=== PATIENT | female | born 2000 | race Hispanic/Latino ===

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

== ENCOUNTER 2019-05-18 16:08 | Emergency (ER) | payer SELFPAY ==
--- OUTSIDE RECORDS SUMMARY | 2019-05-18 16:10 | XMS REPORT | Summary of Care ---
:2000 Author Organization [facility] - Health Address [address] [place] [address] Care Team Providers Name Role Phone Ev Rendon Talha Insurance Hmo Shira Guthrie [facility] Primary Care Provider Encounter Details Date Type Department Care Team Description 04/04/2019 Orders Only [facility] Doctor Unassigned, No [address] [facility] [place] [address] [address] [place] [address] Allergies Active Allergy Reactions Severity Noted Date Comments Penicillin Anaphylaxis High 10/06/2017 documented as of this encounter (statuses as of 04/04/2019) Medications Medication Sig Dispensed Refills Start Date End Date Status docusate calcium 240 Take 1 capsule by 60 capsule 1 06/28/2018 Active mg mouth once daily capsuleIndications: as needed for (normal Constipation. spontaneous vaginal delivery) ibuprofen 600 mg Take 1 tablet by 60 tablet 1 06/28/2018 Active tabletIndications: mouth every 6 (normal (six) hours as spontaneous vaginal needed for Pain delivery) (scale 1-3) or Pain (scale 4-6) (Pain). Take with food or milk. Iron Fum & P-FA-Vit Take 1 capsule by 30 capsule 2 06/28/2018 Active B & C No.9 (INTEGRA mouth daily. PLUS) 125 mg iron- 1 mg CapIndications: 39 weeks gestation of , (normal spontaneous vaginal delivery) clindamycin 150 mg Take 3 capsules 90 capsule 0 04/02/2019 04/12/2019 Active capsuleIndications: by mouth 3 Abscess, vulva (three) times daily for 10 days. acetaminophen-codein Take 1 tablet by 12 tablet 0 04/02/2019 Active e 300-30 mg mouth every 4 tabletIndications: (four) hours as Abscess, vulva needed for Pain (scale 4-6). documented as of this encounter (statuses as of 04/04/2019) Active Problems Patient Care Coordination Note IOL 5-7-19 at 7am Problem Noted Date Well woman exam 08/08/2018 Contraceptive management 08/08/2018 History of asthma 06/27/2018 Tattoos 06/26/2018 Cigarette smoker 06/26/2018 Overview: counseled and decreased in Personal history of allergy to penicillin 06/26/2018 Overview: Patient reports anaphylaxis reaction documented as of this encounter (statuses as of 04/04/2019) Resolved Problems Problem Noted Date Resolved Date care and examination of lactating mother 07/18/2018 08/08/2018 (normal spontaneous vaginal delivery) 06/27/2018 07/18/2018 Normal (single liveborn) 06/27/2018 07/18/2018 39 weeks gestation of 06/26/2018 07/18/2018 Overview: For elective IOL Labor and delivery indication for care or intervention 06/26/2018 07/18/2018 Teenage parent 06/26/2018 07/18/2018 06/26/2018 06/27/2018 Primigravida in second trimester 01/03/2018 06/26/2018 Nausea and vomiting during prior to 22 weeks 12/06/2017 06/26/2018 gestation Supervision of high-risk 11/08/2017 06/27/2018 documented as of this encounter (statuses as of 04/04/2019) Immunizations Name Administration Dates Next Due TDAP (ADACEL) VACCINE 02/20/2013 Tdap 04/16/2018 documented as of this encounter Social History Tobacco Use Types Packs/Day Years Used Date Current Every Day Smoker Cigarettes 1 5 Started: 2012 Smokeless Tobacco: Never Used Comments: Patient has cut down to 7 cigarrettes/day Alcohol Use Drinks/Week oz/Week Comments Yes 10 Shots of liquor 10.0 Sex Assigned at Date Recorded Not on file Job Start Date Occupation Industry Not on file Not on file Not on file Travel History Travel Start Travel End No recent travel history available. documented as of this encounter Last Filed Vital Signs Not on filedocumented in this encounter Plan of Treatment Health Maintenance Due Date Last Done Comments PNEUMOCOCCAL 0-64 YEARS 2004 COMBINED SERIES (1 of 1 - PPSV23) MENINGOCOCCAL B VACCINES (1 2008 of 2 - Risk Bexsero 2-dose series) HPV VACCINES (1 - Female 2009 2-dose series) WELL CARE VISIT: 12-21 YEARS 2010 (yearly) INFLUENZA VACCINE (#1) 2018 CHLAMYDIA SCREENING 08/09/2019 08/08/2018, 06/07/2018, 11/08/2017, Additional history exists DTaP,Tdap,and Td Vaccines (3 04/16/2028 04/16/2018, 02/20/2013 - Td) MENINGOCOCCAL VACCINE Aged Out No longer eligible based on patient's age to complete this topic documented as of this encounter Goals Goal Patient Goal Associated Recent Patient-Stated? 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 xxxxxxxxx 2017-Pres [address] Medicaid HEALTH CHOICE HEALTH CHOICE ent [id number] - MANAGED MEDICAID [place] [id number] documented as of this encounter Advance Directives Name Relationship Healthcare Agent Relationship Communication Adrianna Bella Mother Primary healthcare agent
--- OUTSIDE RECORDS SUMMARY | 2019-05-18 16:10 | XMS REPORT | Summary of Care ---
:2000 Author Organization [facility] - Health Address [address] [place] [address] Care Team Providers Name Role Phone Justice Ev Talha Insurance Hmo Shira Guthrie [facility] Primary Care Provider Reason for Visit Reason Comments Wound Auth/Cert Status Reason Specialty Diagnoses / Referred By Referred To Procedures Contact Contact [facility] [address] [place] [address] [place] [address] Encounter Details Date Type Department Care Team Description 04/04/2019 Emergency [facility]-Emergency Sherif Vincent, Visit for wound check 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) [address] [place], [place] [address] [place], [place] [phone] Allergies Active Allergy Reactions Severity Noted Date [...] Active Problems Patient Care Coordination Note IOL 06-26-18 at 7am Problem Noted Date Well woman [...] of this encounter Last Filed Vital Signs Vital Sign Reading Time Taken Comments Blood Pressure 120/67 04/04/2019 4:03 PM ICE HANDLER Pulse 87 04/04/2019 4:03 PM ICE HANDLER Temperature 36.8 C (98.2 F) 04/04/2019 4:03 PM ICE HANDLER Respiratory Rate 18 04/04/2019 4:03 PM ICE HANDLER Oxygen Saturation 100% 04/04/2019 4:03 PM ICE HANDLER Inhaled Oxygen Concentration - - Weight 53.1 kg (117 lb) 04/04/2019 4:03 PM ICE HANDLER Height 157.5 cm (5' 2") 04/04/2019 4:03 PM ICE HANDLER Body Mass Index 21.4 04/04/2019 4:03 PM ICE HANDLER documented in this encounter Plan of Treatment Health [...] Type Problems Progress Quit using Tobacco Use bernardino Stevens RN (cigarettes, smokeless, etc) documented as of this encounter Results Not on filedocumented in this encounter Visit Diagnoses Diagnosis Visit for wound check - Primary Encounter for other specified aftercare documented in this encounter Insurance Payer Benefit Plan / Subscriber ID Effective Phone Address Type Group Dates MEDICAID MEDICAID PENDING 2019-[address] [place] [address] documented as of this encounter Advance Directives Name Relationship Healthcare Agent Relationship Communication Adrianna Bella Mother Primary healthcare agent
--- OUTSIDE RECORDS SUMMARY | 2019-05-18 16:10 | XMS REPORT | Summary of Care ---
:2000 Author Organization [facility] - Health Address [address] [place] [id number] Care Team Providers Name Role Phone Shira Guthrie [facility] Primary Care Provider Ev Rendon Insurance Hmo Encounter Details Date Type Department Care Team Description 04/02/2019 Orders Only [facility] Doctor Unassigned, No [address] [facility] [place] [address] [address] [place] [address] Allergies Active Allergy Reactions Severity Noted Date Comments Penicillin Anaphylaxis High 10/06/2017 documented as of this encounter (statuses as of 04/02/2019) Medications Medication Sig Dispensed Refills Start Date End Date Status docusate calcium 240 Take 1 capsule by 60 capsule 1 06/28/2018 Active mg capsuleIndications: mouth once daily (normal as needed for spontaneous vaginal Constipation. delivery) ibuprofen 600 mg Take 1 tablet by 60 tablet 1 06/28/2018 Active tabletIndications: mouth every 6 (normal (six) hours as spontaneous vaginal needed for Pain delivery) (scale 1-3) or Pain (scale 4-6) (Pain). Take with food or milk. Iron Fum & P-FA-Vit B Take 1 capsule by 30 capsule 2 06/28/2018 Active & C No.9 (INTEGRA mouth daily. PLUS) 125 mg iron- 1 mg CapIndications: 39 weeks gestation of , (normal spontaneous vaginal delivery) documented as of this encounter (statuses as of 04/02/2019) Active Problems Patient Care Coordination Note IOL 5-7-19 at 7am Problem Noted Date Well woman exam 08/08/2018 Contraceptive management 08/08/2018 History of asthma 06/27/2018 Tattoos 06/26/2018 Cigarette smoker 06/26/2018 Overview: counseled and decreased in Personal history of allergy to penicillin 06/26/2018 Overview: Patient reports anaphylaxis reaction documented as of this encounter (statuses as of 04/02/2019) Resolved Problems Problem Noted Date Resolved Date [...] as of this encounter (statuses as of 04/02/2019) Immunizations Name Administration Dates Next Due TDAP [...] 2-dose series) HPV VACCINES (1 - Female 2013 3-dose series) INFLUENZA VACCINE (#1) 2018 CHLAMYDIA SCREENING 08/09/2019 [...] Date/Time Associated Diagnosis Comments CONSENT/REFUSAL FOR Routine 04/02/2019 5:47 PM LAND CHECKER DIAGNOSIS AND TREATMENT documented in this encounter Results Not on filedocumented in this encounter Insurance Payer Benefit Plan / Subscriber ID Effective Phone Address Type Group Dates [facility] xxxxxxxxx 2018-Pres [phone] Medicaid WOMEN ent [id number] [place] [address] [facility] xxxxxxxxx 2017-Pres [address] Medicaid HEALTH CHOICE HEALTH CHOICE ent [id number] - MANAGED MEDICAID [place], [place] [id number] documented as of this encounter Advance Directives Name Relationship Healthcare Agent Relationship Communication Adrianna Bella Mother Primary healthcare agent
--- OUTSIDE RECORDS SUMMARY | 2019-05-18 16:10 | XMS REPORT ---
:2000 [facility] Address [address] [place] [address] [address] [place] [address] [place] [address] Care Team Providers Name Role Phone Unavailable Unavailable Unavailable Problems This patient has no known problems. Allergies, Adverse Reactions, Alerts This patient has no known allergies or adverse reactions. Medications This patient has no known medications.
--- OUTSIDE RECORDS SUMMARY | 2019-05-18 16:11 | XMS REPORT | Summary of Care ---
:2000 Author Organization [facility] - Health Address [address] [place] [id number] Care Team Providers Name Role Phone JusticeReji simmonshanie Talha Insurance Hmo Shira Guthrie [facility] Primary Care Provider Reason for Visit Reason Comments Abscess Auth/Cert Status Reason Specialty Diagnoses / Referred By Referred To Procedures Contact Contact Emergency Medicine Diagnoses KNOT/LUMP LT INNER THIGH [facility] [address] [place] [address] [place] [address] Encounter Details Date Type Department Care Team Description 04/02/2019 Emergency [facility]-Emergency Em Rojas, PAC Abscess, vulva Department [address] [place] [address] (Primary Dx) [address] [place] [address] [place] [address] [place], [place] [id number] Allergies Active Allergy Reactions Severity Noted Date [...] Active Problems Patient Care Coordination Note IOL 19 at 7am Problem Noted Date Well woman [...] Sign Reading Time Taken Comments Blood Pressure 121/66 04/02/2019 6:01 PM HORSE RACING ANALYST Pulse 85 04/02/2019 6:01 PM HORSE RACING ANALYST Temperature 37.1 C (98.8 F) 04/02/2019 6:01 PM HORSE RACING ANALYST Respiratory Rate 20 04/02/2019 6:01 PM HORSE RACING ANALYST Oxygen Saturation 95% 04/02/2019 6:01 PM HORSE RACING ANALYST Inhaled Oxygen Concentration - - Weight 49.7 kg (109 lb 9.6 oz) 04/02/2019 6:01 PM HORSE RACING ANALYST Height - - Body Mass Index - - documented in this encounter Discharge Instructions Em Reyes, PAC - . Keep wound clean and dry. Keep covered for 1-2 days and then cover when you will be likely to getwound contaminated with dirt or dirty water. 2. Watch for signs of infection such as redness, swelling, purulent discharge or increased pain and follow up with your PCP clinic for evaluation and treatment if infection develops 3. Return to the ER if you feel annmarie you are getting worse or the infection is getting bigger. 4. Follow up with assistant coach or PCP for packing to be removed. AttachmentsThe following attachments cannot be sent through Care Everywhere.Abscess, Incision And Drainage (Belizean)documented in this encounter Plan of Treatment Health [...] Procedure Name Priority Date/Time Associated Diagnosis Comments NOTICE OF PRIVACY Routine 04/02/2019 5:47 PM HORSE RACING ANALYST PRACTICES documented in this encounter Results Not on filedocumented in this encounter Visit Diagnoses Diagnosis Abscess, vulva - Primary Other abscess of vulva documented in this encounter Administered Medications Medication Order MAR Action Action Date Dose Rate Site clindamycin (CLEOCIN HCL) capsule Given 04/02/2019 7:12 PM HORSE RACING ANALYST 450 mg 450 mg 450 mg, Oral, ONCE, 1 dose, 04/02/19 at 2014, KEV, Reason for Anti-Infective: Documented Infection, Documented Infection Site: Skin / Soft Tissue, Duration of Therapy: Other (see Comments), Restricted use approved by: ADC PROVIDER HYDROcodone-acetaminophen (NORCO 5) 5-325 Given 04/02/2019 7:12 PM HORSE RACING ANALYST 1 tablet mg tablet 1 tablet 1 tablet, Oral, ONCE, 1 dose, 04/02/19 at 2014, KEV documented in this encounter Advance Directives Name Relationship Healthcare Agent Relationship Communication Adrianna Bella Mother Primary healthcare agent
[2019-05-18 16:23] LABS: Absolute Lymphocytes (CBC) 3.5 K/uL (0.7-4.9); Basophils % 0.5 % (0-1.3); Hematocrit 43.6 % (36.0-45.0); Lymphocytes % 27.4 % (15.3-44.8); MPV 10.9 fL (7.6-11.3); RBC Red Blood Cell Count 4.55 M/uL (3.86-4.86)
[2019-05-18 16:27] LABS: Blood Gas Oxyhemoglobin 94.9 % (94-97); Blood O2 Saturation 98.7 % (92-98.5)
[2019-05-18 16:31] LABS: Protime INR 1.11
--- NOTE | 2019-05-18 16:35 | RAD REPORT ---
EXAM DESCRIPTION: RAD - Chest Single View - 05/18/2019 4:30 pm CLINICAL HISTORY: DYSPNEA Chest pain. COMPARISON: No comparisons FINDINGS: Portable technique limits examination quality. The lungs are grossly clear. The heart is normal in size. No displaced fractures. IMPRESSION: No acute intrathoracic process suspected.
[2019-05-18] MEDS ORDERED: LORazepam 2 MG/ML VIAL ONE (16:39)
[2019-05-18] MEDS ORDERED: NA CHLORIDE 0.9% 1,000 ML ONE (16:40)
[2019-05-18] MEDS ORDERED: ONDANSETRON 4 MG/2 ML VIAL ONE (16:40)
[2019-05-18 17:06] LABS: ALT/SGPT 16 U/L (12-78); AST/SGOT 18 U/L (15-37); Albumin 4.9 g/dL (3.4-5.0); Alkaline Phosphatase 91 U/L (45-117); BUN Blood Urea Nitrogen 12 mg/dL (7-18); Bicarbonate 17 mmol/L (21-32); Bilirubin Direct 0.2 mg/dL (0-0.2); Bilirubin Total 0.9 mg/dL (0.2-1.0); Glucose Level 104 mg/dL (74-106); Potassium 3.3 mmol/L (3.5-5.1); Protein, Total 8.5 g/dL (6.4-8.2); Sodium Level 138 mmol/L (136-145)
[2019-05-18 17:36] LABS: Urine Blood NEGATIVE (NEG); Urine Glucose NEGATIVE (NEG); Urine Protein TRACE (NEG); Urine Specific Gravity 1.025 (1.005-1.030)
[2019-05-18 17:47] LABS: Barbiturates NEGATIVE (NEGATIVE); Benzodiazepines POSITIVE (NEGATIVE); Cocaine NEGATIVE (NEGATIVE); METHAMPHETAM POSITIVE (NEGATIVE); Methadone NEGATIVE (NEGATIVE); Opiates NEGATIVE (NEGATIVE); Phencyclidine NEGATIVE (NEGATIVE); THC Cannibis POSITIVE (NEGATIVE)
--- NOTE | 2019-05-18 17:56 | EDPHYS ---
Physician Documentation [facility] Name: Rivka Johnson Age: 18 yrs Sex: Female : 2000 Arrival Date: 05/18/2019 Time: 16:11 Bed 4 Private MD: Zhang Rice HPI: 05/17 16:13 This 18 yrs old Female presents to ER via Unassigned with complaints of leatha Probable Seizure. 16:13 The patient presents after having a possible seizure episode. leatha Historical: - Allergies: 17:06 PENICILLINS; ph - PSHx: 17:06 mouth surg; ph - Immunization history:: Adult Immunizations unknown. - Family history:: not pertinent. - Social history:: Smoking status: Patient denies any tobacco usage or history of. ROS: 16:13 Constitutional: Negative for fever, chills, and weight loss, Eyes: Negative for injury, leatha pain, redness, and discharge, ENT: Negative for injury, pain, and discharge, Neck: Negative for injury, pain, and swelling, Cardiovascular: Negative for chest pain, palpitations, and edema, Abdomen/GI: Negative for abdominal pain, nausea, vomiting, diarrhea, and constipation, Back: Negative for injury and pain, : Negative for injury, bleeding, discharge, and swelling, MS/Extremity: Negative for injury and deformity, Skin: Negative for injury, rash, and discoloration, Psych: Negative for depression, anxiety, suicide ideation, homicidal ideation, and hallucinations, Allergy/Immunology: Negative for hives, rash, and allergies, Endocrine: Negative for neck swelling, polydipsia, polyuria, polyphagia, and marked weight changes, Hematologic/Lymphatic: Negative for swollen nodes, abnormal bleeding, and unusual bruising. 16:13 Respiratory: Positive for shortness of breath. 16:13 Neuro: Positive for 16:13 Psych: Positive for anxiety, hyperventilation. Exam: 16:13 Constitutional: This is a well developed, well nourished patient who is awake, alert, leatha and in no acute distress. Head/Face: Normocephalic, atraumatic. Eyes: Pupils equal round and reactive to light, extra-ocular motions intact. Lids and lashes normal. Conjunctiva and sclera are non-icteric and not injected. Cornea within normal limits. Periorbital areas with no swelling, redness, or edema. ENT: Nares patent. No nasal discharge, no septal abnormalities noted. Tympanic membranes are normal and external auditory canals are clear. Oropharynx with no redness, swelling, or masses, exudates, or evidence of obstruction, uvula midline. Mucous membranes moist. Neck: Trachea midline, no thyromegaly or masses palpated, and no cervical lymphadenopathy. Supple, full range of motion without nuchal rigidity, or vertebral point tenderness. No Meningismus. Chest/axilla: Normal chest wall appearance and motion. Nontender with no deformity. No lesions are appreciated. Cardiovascular: Regular rate and rhythm with a normal S1 and S2. No gallops, murmurs, or rubs. Normal PMI, no JVD. No pulse deficits. Abdomen/GI: Soft, non-tender, with normal bowel sounds. No distension or tympany. No guarding or rebound. No evidence of tenderness throughout. Back: No spinal tenderness. No costovertebral tenderness. Full range of motion. Skin: Warm, dry with normal turgor. Normal color with no rashes, no lesions, and no evidence of cellulitis. MS/ Extremity: Pulses equal, no cyanosis. Neurovascular intact. Full, normal range of motion. Neuro: Awake and alert, GCS 15, oriented to person, place, time, and situation. Cranial nerves II-XII grossly intact. Motor strength 5/5 in all extremities. Sensory grossly intact. Cerebellar exam normal. Normal gait. Psych: Awake, alert, with orientation to person, place and time. Behavior, mood, and affect are within normal limits. 16:13 Respiratory: mild respiratory distress is noted, Respirations: tachypnea, Breath sounds: are clear throughout, Respiratory rate: 30 Vital Signs: 16:16 BP 130 / 110; Pulse 109; Resp 30; Pulse Ox 100% on R/A; Weight 54.43 kg; ph 16:52 BP 138 / 94; Pulse 79; Resp 18; Pulse Ox 98% on R/A; ph 18:18 BP 117 / 82; Pulse 76; Resp 18; Pulse Ox 97% on R/A; ph 19:30 BP 118 / 78; Pulse 70; Resp 18; Pulse Ox 99% ; ea MDM: 16:11 Patient medically screened. [facility] 16:15 Data reviewed: vital signs, nurses notes, lab test result(s), EKG, radiologic studies, leatha plain films. 05/17 16:12 Order name: ABG; Complete Time: 16:53 [facility] 05/17 16:12 Order name: Acetaminophen; Complete Time: 17:07 [facility] 05/17 16:12 Order name: Basic Metabolic Panel; Complete Time: 17:07 [facility] 05/17 16:12 Order name: CBC with Diff; Complete Time: 16:53 [facility] 05/17 16:12 Order name: ETOH Level; Complete Time: 16:53 [facility] 05/17 16:12 Order name: Hepatic Function; Complete Time: 17:07 [facility] 05/17 16:12 Order name: PT-INR; Complete Time: 16:53 [facility] 05/17 16:12 Order name: Ptt, Activated; Complete Time: 16:53 [facility] 05/17 16:12 Order name: Salicylate; Complete Time: 17:06 [facility] 05/17 16:12 Order name: Urine Drug Screen; Complete Time: 17:54 [facility] 05/17 16:12 Order name: Chest Single View XRAY; Complete Time: 16:53 [facility] 05/17 17:31 Order name: Urine Dipstick--Ancillary (enter results); Complete Time: 17:54 dc 05/17 17:31 Order name: Urine --Ancillary (enter results); Complete Time: 17:54 dc 05/17 16:12 Order name: Urine Test (obtain specimen); Complete Time: 19:19 [facility] 05/17 16:12 Order name: EKG; Complete Time: 16:14 [facility] 05/17 16:12 Order name: EKG - Nurse/Tech; Complete Time: 18:57 [facility] 05/17 16:12 Order name: IV Saline Lock; Complete Time: 16:26 [facility] 05/17 16:12 Order name: Labs collected and sent; Complete Time: 16:26 [facility] 05/17 16:12 Order name: Urine Dipstick-Ancillary (obtain specimen); Complete Time: 19:19 [facility] Administered Medications: 16:47 Drug: NS 0.9% 1000 ml Route: IV; Rate: 1 bolus; Site: right hand; ph 19:04 Follow up: Response: No adverse reaction; IV Status: Completed infusion; IV Intake: ph 1000ml 16:48 Drug: Ativan 0.5 mg Route: IVP; Site: right hand; ph 19:17 Follow up: Response: No adverse reaction ea 16:50 Drug: Ativan 0.5 mg Route: IVP; Site: right hand; ph 19:16 Follow up: Response: No adverse reaction ea 16:51 Drug: Zofran (Ondansetron) 4 mg Route: IVP; Site: right hand; ph 19:16 Follow up: Response: No adverse reaction ea 19:37 Drug: Potassium Effervescent Tablet 25 mEq Route: PO; ea 19:37 Follow up: Response: Medication administered at discharge. ea Disposition: 05/18/19 17:55 Discharged to Home. Impression: Hyperventilation, Anxiety disorder, unspecified, Hypokalemia, Adverse effect of amphetamines, Abuse of non-psychoactive substances. - Condition is Stable. - Discharge Instructions: Panic Attacks, Potassium Content of Foods, Hyperventilation, Substance Use Disorder, Stimulant Use Disorder-Methamphetamines, Panic Attacks, Eoat-aq-Mdcs, Generalized Anxiety Disorder, Hypokalemia. - Prescriptions for Benadryl 25 mg Oral Capsule - take 1 capsule by ORAL route every 6 hours As needed; 30 tablet. - Medication Reconciliation Form, Thank You Letter, Antibiotic Education, Prescription Opioid Use form. - Follow up: Private Physician; When: 2 - 3 days; Reason: Recheck today's complaints, Continuance of care, Re-evaluation by your physician. - Problem is new. - Symptoms have improved. Signatures: Dispatcher [employer] EDZhang Arce MD MD cha Hall, Patricia, RN RN Alecia Lee RN RN ea Corrections: (The following items were deleted from the chart) 19:43 17:55 05/18/2019 17:55 Discharged to Home. Impression: Hyperventilation; Anxiety ea disorder, unspecified; Hypokalemia; Adverse effect of amphetamines; Abuse of non-psychoactive substances. Condition is Stable. Discharge Instructions: Panic Attacks, Hyperventilation, Panic Attacks, Hymc-yr-Tqzn, Generalized Anxiety Disorder, Potassium Content of Foods, Hypokalemia. Prescriptions for Benadryl 25 mg Oral Capsule - take 1 capsule by ORAL route every 6 hours As needed; 30 tablet. and Forms are Medication Reconciliation Form, Thank You Letter, Antibiotic Education, Prescription Opioid Use. Follow up: Private Physician; When: 2 - 3 days; Reason: Recheck today's complaints, Continuance of care, Re-evaluation by your physician. Problem is new. Symptoms have improved. leatha
--- NOTE | 2019-05-18 17:56 | ER ---
Nurse's Notes [facility] Name: Rivka Johnson Age: 18 yrs Sex: Female : 2000 Arrival Date: 05/18/2019 Time: 16:11 Bed 4 Private MD: Diagnosis: Hyperventilation;Anxiety disorder, unspecified;Hypokalemia;Adverse effect of amphetamines;Abuse of non-psychoactive substances Presentation: 05/17 16:16 Chief complaint: Pt found at ED entrance hyperventilating and unable to ambulate, SO ph states, " Please help her, this is the second time today this has happened." Pt placed in wheelchair and taken to ED 4, pt awake and alert. Coronavirus screen: Patient denies fever greater than 100.4F, cough, shortness of breath, or difficulty breathing. Ebola Screen: No symptoms or risks identified at this time. Initial Sepsis Screen: Does the patient meet any 2 criteria? RR > 20 per min. HR > 90 bpm. Does the patient have a suspected source of infection? No. Patient's initial sepsis screen is negative. Risk Assessment: Do you want to hurt yourself or someone else? Patient reports no desire to harm self or others. 16:16 Method Of Arrival: Wheelchair 16:16 Acuity: LEENA 3 ph Triage Assessment: 16:27 General: Appears uncomfortable, slender, Behavior is anxious, crying. Pain: Complains ph of pain in right arm and left arm. EENT:. Neuro: Level of Consciousness is awake, alert, obeys commands, Oriented to person, place, time, situation. Cardiovascular: Capillary refill < 3 seconds Patient's skin is warm and dry. Rhythm is sinus tachycardia. Respiratory: Airway is patent Respiratory effort is shallow, Respiratory pattern is tachypnea. Derm: Skin is intact, Skin is pink, warm \\T\\ dry. Musculoskeletal: Circulation, motion, and sensation intact. Range of motion: intact in all extremities. Historical: - Allergies: 17:06 PENICILLINS; ph - PSHx: 17:06 mouth surg; ph - Immunization history:: Adult Immunizations unknown. - Family history:: not pertinent. - Social history:: Smoking status: Patient denies any tobacco usage or history of. Screenin:19 Abuse screen: Denies threats or abuse. Denies injuries from another. Nutritional ph screening: No deficits noted. Tuberculosis screening: No symptoms or risk factors identified. Fall Risk None identified. Assessment: 16:50 Reassessment: Patient appears in no apparent distress at this time. Patient and/or ph family updated on plan of care and expected duration. Pain level reassessed. Patient is alert, oriented x 3, equal unlabored respirations, skin warm/dry/pink. Pt now more calm, respirations decreased, reports that pain and tingling in arms has improved, awaiting lab results, VSS. 18:00 Reassessment: Patient appears in no apparent distress at this time. Patient and/or ph family updated on plan of care and expected duration. Pain level reassessed. Pt asleep w/ equal and unlabored respirations, VSS, will continue to monitor. 19:38 General: Appears distressed, Behavior is drowsy. Pain: Denies pain. Respiratory: Airway ea is patent Respiratory effort is even, unlabored, Respiratory pattern is regular, symmetrical. Derm: Skin is pink, warm \\T\\ dry. 19:40 Reassessment: Discharge instruction given to patient and family. Pt left ED via ea wheelchair, assisted to private vehicle, pt tolerated well. Vital Signs: 16:16 BP 130 / 110; Pulse 109; Resp 30; Pulse Ox 100% on R/A; Weight 54.43 kg; ph 16:52 BP 138 / 94; Pulse 79; Resp 18; Pulse Ox 98% on R/A; ph 18:18 BP 117 / 82; Pulse 76; Resp 18; Pulse Ox 97% on R/A; ph 19:30 BP 118 / 78; Pulse 70; Resp 18; Pulse Ox 99% ; ea ED Course: 16:10 Inserted saline lock: 20 gauge in right hand, using aseptic technique. Blood collected. ll1 16:11 Patient arrived in ED. mr 16:11 Zhang Ngo MD is Attending Physician. leatha 16:16 Meghan Cordova, TOYA is Primary Nurse. ph 16:18 EKG done, by ED staff, reviewed by Zhang Ngo MD. dh3 16:19 Triage completed. ph 16:30 Chest Single View XRAY In Process Unspecified. EDMS 16:59 Arm band placed on Patient placed in an exam room. ph 16:59 Seizure precautions initiated. ph 17:06 No provider procedures requiring assistance completed. ph 17:25 Straight cath inserted, using sterile technique, 15Fr Returned clear yellow urine. dh3 Patient tolerated well. assisted by Rosa PITTMAN. 19:38 IV discontinued, intact, bleeding controlled, No redness/swelling at site. Pressure ea dressing applied. Administered Medications: 16:47 Drug: NS 0.9% 1000 ml Route: IV; Rate: 1 bolus; Site: right hand; ph 19:04 Follow up: Response: No adverse reaction; IV Status: Completed infusion; IV Intake: ph 1000ml 16:48 Drug: Ativan 0.5 mg Route: IVP; Site: right hand; ph 19:17 Follow up: Response: No adverse reaction ea 16:50 Drug: Ativan 0.5 mg Route: IVP; Site: right hand; ph 19:16 Follow up: Response: No adverse reaction ea 16:51 Drug: Zofran (Ondansetron) 4 mg Route: IVP; Site: right hand; ph 19:16 Follow up: Response: No adverse reaction ea 19:37 Drug: Potassium Effervescent Tablet 25 mEq Route: PO; ea 19:37 Follow up: Response: Medication administered at discharge. ea Intake: 19:04 IV: 1000ml; Total: 1000ml. ph Outcome: 17:55 Discharge ordered by . leatha 19:38 Discharged to home via wheelchair, with family. ea 19:38 Condition: stable 19:38 Discharge instructions given to patient, family, Instructed on discharge instructions, follow up and referral plans. medication usage, Demonstrated understanding of instructions, follow-up care, medications, Prescriptions given X 1. 19:43 Patient left the ED. ea Signatures: Dispatcher [employer] EDMS Zhang Ngo MD MD cha Rivera, Nayla mr Meghan Cordova RN RN Chelsea [facility] Alecia Green RN RN ea Lewis, Lynsay, RN RN ll1
[2019-05-18] MEDS ORDERED: POTASSIUM 25 MEQ EFFERV TAB ONE (19:24)
[2019-05-18 19:56] VITALS: BP 118/78; O2SAT 99
--- NOTE | 2019-05-19 09:17 | EKG ---
Test Date: 2019-05-18 Test Time: 16:19:28 Drying Tunnel Operator: PAOLA MEASUREMENT RESULTS: Intervals: Rate: 84 AR: 120 QRSD: 80 QT: 360 QTc: 425 [place]: P: 46 AR: 120 QRS: 78 T: 63 INTERPRETIVE STATEMENTS: Normal sinus rhythm Normal ECG Compared to ECG 06/25/2017 23:23:37 No significant changes Electronically Signed On 05-19-19 09:16:27 CDT by Joe Coppola
== END 2019-05-18 19:43 | disposition home or self-care (01) ==
LOC: ER 16:08
DX: R06.4 Hyperventilation (principal); F41.9 Anxiety disorder, unspecified; E87.6 Hypokalemia; T43.625A Adverse effect of amphetamines, initial encounter; F55.8 Abuse of other non-psychoactive substances; Z88.0 Allergy status to penicillin
CPT/HCPCS: 36415; 51702; 71045; 80048; 80076; 80307; 80320; 80329; 81003; 81025; 82805; 85025; 85610; 85730; 93005; 96361; 96374; 96375; 99284; J2405; J7030

== ENCOUNTER 2019-07-16 11:59 | Emergency (ER) | payer SELFPAY ==
--- OUTSIDE RECORDS SUMMARY | 2019-07-16 12:03 | XMS REPORT ---
:2000 Author Organization [facility] t Address [address] [place] [address] Care Team Providers Name Role Phone Nguyen Horton Attending Clinician Doctor Unassigned, Name Attending Clinician Unavailable Crystal CLEMENTS, S Attending Clinician Problems This patient has no known problems. Allergies, Adverse Reactions, Alerts This patient has no known allergies or adverse reactions. Medications This patient has no known medications. Procedures This patient has no known procedures. Encounters Start End Encounter Admission Attending Care Care Encounter Source Date/Time Date/Time Type Type Clinicians Facility Department ID 2019-04-04 2019-04-04 Emergency [place] [facility] [id number] 16:05:42 19:19:00 Sherif Rosales [id number] [place] [id number] [place] [address] [id number] 2019-04-04 2019-04-04 Orders Doctor HERNANDEZ [id number] 00:00:00 00:00:00 Only UnassignedANNA [id number] [place] [id number] [id number] 2019-04-02 2019-04-02 Emergency CRISTINA Rojas [id number] 18:02:56 19:32:00 Em Rosales [id number] [place] [id number] [place] [address] [id number] 2019-04-02 2019-04-02 Orders Doctor DAVID [id number] 00:00:00 00:00:00 Only Unassigned, ANNA [id number] [place] [facility] [id number] Results This patient has no known results.
--- NOTE | 2019-07-16 13:23 | RAD REPORT ---
EXAM DESCRIPTION: RAD - Hand Left 3 View - 07/16/2019 1:18 pm CLINICAL HISTORY: PAIN Trauma, pain COMPARISON: No comparisons FINDINGS: Oblique fracture involves the shaft of the fourth metacarpal. No additional fracture is se en.
[2019-07-16 14:34] VITALS: TEMP 98.2
[2019-07-16 14:36] VITALS: BP 106/69; O2SAT 100
--- NOTE | 2019-07-22 13:19 | ER ---
Nurse's Notes [facility] Name: Rivka Johnson Age: 19 yrs Sex: Female : 2000 Arrival Date: 07/16/2019 Time: 12:01 Bed 17 Private MD: Diagnosis: Displaced fracture of base of fourth metacarpal bone, left hand Presentation: 07/15 12:02 Chief complaint: Patient states: "I slammed my finger with the car door". Pt c/o pain aa5 to left ring finger. 12:02 Coronavirus screen: Proceed with normal triage. Patient denies a cough. Patient denies aa5 shortness of breath or difficulty breathing. Patient denies measured and/or subjective temperature greater than 100.4F prior to today's visit. Patient denies travel on a cruise ship or to a country the [facility] currently lists as an affected area. Patient denies contact with known and/or suspected case of COVID-19. Ebola Screen: Patient negative for fever greater than or equal to 101.5 degrees Fahrenheit, and additional compatible Ebola Virus Disease symptoms. Initial Sepsis Screen: Does the patient meet any 2 criteria? No. Patient's initial sepsis screen is negative. Does the patient have a suspected source of infection? No. Patient's initial sepsis screen is negative. Risk Assessment: Do you want to hurt yourself or someone else? Patient reports no desire to harm self or others. Onset of symptoms was June 2019. 12:02 Method Of Arrival: Ambulatory aa5 12:02 Acuity: LEENA 4 aa5 Triage Assessment: 12:10 Injury Description: smashed ring finger on the left hand in a car door earlier. rb1 Historical: - Allergies: 12:20 PENICILLINS; aa5 - PMHx: 12:20 None; aa5 - PSHx: 12:20 lip sx; aa5 - Immunization history:: Flu vaccine is up to date. - Social history:: Smoking status: Patient reports the use of cigarette tobacco products, smokes one-half pack cigarettes per day. Screenin:10 Abuse screen: Denies threats or abuse. Nutritional screening: No deficits noted. rb1 Tuberculosis screening: No symptoms or risk factors identified. Fall Risk None identified. Assessment: 12:10 General: Appears in no apparent distress. comfortable, Behavior is calm, cooperative. rb1 Pain: Complains of pain in PIP of left ring finger Pain currently is 8 out of 10 on a pain scale. Pain began today. Neuro: Level of Consciousness is awake, alert, obeys commands, Oriented to person, place, time, situation. Cardiovascular: Capillary refill < 3 seconds. Respiratory: Airway is patent Respiratory effort is even, unlabored, Respiratory pattern is regular, symmetrical. GI: No signs and/or symptoms were reported involving the gastrointestinal system. : No signs and/or symptoms were reported regarding the genitourinary system. Derm: Skin is pink, warm \\T\\ dry. Musculoskeletal: Swelling present in left hand. 13:10 Reassessment: Patient appears in no apparent distress at this time. No changes from rb1 previously documented assessment. 14:10 Reassessment: Patient appears in no apparent distress at this time. Patient and/or rb1 family updated on plan of care and expected duration. Pain level reassessed. Patient is alert, oriented x 3, equal unlabored respirations, skin warm/dry/pink. Vital Signs: 12:02 BP 101 / 79; Pulse 81; Resp 16 S; Temp 98.2(O); Pulse Ox 100% on R/A; Weight 52.16 kg aa5 (R); Height 5 ft. 1 in. (154.94 cm) (R); Pain 6/10; 13:09 BP 104 / 66; Pulse 56; Resp 16; Pulse Ox 99% ; rb1 14:00 BP 106 / 69; Pulse 55; Resp 17; Pulse Ox 100% on R/A; rb1 12:02 Body Mass Index 21.73 (52.16 kg, 154.94 cm) aa5 ED Course: 12:01 Patient arrived in ED. as 12:02 Arm band placed on Patient placed in an exam room, on a stretcher. aa5 12:10 Mandeep Quintana PA is PHCP. jr8 12:10 Ned Guo MD is Attending Physician. jr8 12:10 Patient has correct armband on for positive identification. Bed in low position. Call rb1 light in reach. Side rails up X 1. Pulse ox on. NIBP on. 12:19 Triage completed. aa5 12:24 Cris Hdz, TOYA is Primary Nurse. rb1 13:20 XRAY Hand LEFT 3 View In Process Unspecified. EDMS 13:47 Nicho Reese MD is Referral Physician. jr8 14:15 Orthoglass splint: Ulnar gutter/Boxer splint applied on right forearm. dh4 14:19 No provider procedures requiring assistance completed. Patient did not have IV access rb1 during this emergency room visit. Administered Medications: No medications were administered Outcome: 13:48 Discharge ordered by . jr8 14:19 Discharged to home ambulatory. rb1 14:19 Condition: stable 14:19 Discharge instructions given to patient, Instructed on discharge instructions, follow up and referral plans. medication usage, Demonstrated understanding of instructions, follow-up care, medications, Prescriptions given X 1. 14:21 Patient left the ED. rb1 Signatures: Dispatcher [employer] EDMS Zahida Alvarez Audri, RN RN aa5 Mandeep Quintana PA PA jr8 Cris Hdz, RN RN rb1 Edmundo Henry 4
--- NOTE | 2019-07-22 13:19 | EDPHYS ---
Physician Documentation [facility] Name: Rivka Johnson Age: 19 yrs Sex: Female : 2000 Arrival Date: 07/16/2019 Time: 12:01 Bed 17 Private MD: ED Physician Ned Guo HPI: 07/15 12:50 This 19 yrs old Female presents to ER via Ambulatory with complaints of Hand jr8 Injury. 12:50 The patient or guardian reports decreased range of motion, pain. The complaints affect jr8 the PIP of left ring finger. Context: The problem was sustained at home, resulted from a crush injury, by a car door. Onset: The symptoms/episode began/occurred acutely, today. Modifying factors: The symptoms are alleviated by nothing, the symptoms are aggravated by movement. Associated signs and symptoms: The patient has no apparent associated signs or symptoms. Severity of symptoms: At their worst the symptoms were moderate, in the emergency department the symptoms are unchanged. The patient has not experienced similar symptoms in the past. The patient has not recently seen a physician. Historical: - Allergies: 12:20 PENICILLINS; aa5 - PMHx: 12:20 None; aa5 - PSHx: 12:20 lip sx; aa5 - Immunization history:: Flu vaccine is up to date. - Social history:: Smoking status: Patient reports the use of cigarette tobacco products, smokes one-half pack cigarettes per day. ROS: 12:50 Eyes: Negative for injury, pain, redness, and discharge, ENT: Negative for injury, jr8 pain, and discharge, Neck: Negative for injury, pain, and swelling, Cardiovascular: Negative for chest pain, palpitations, and edema, Respiratory: Negative for shortness of breath, cough, wheezing, and pleuritic chest pain, Abdomen/GI: Negative for abdominal pain, nausea, vomiting, diarrhea, and constipation, Back: Negative for injury and pain, Skin: Negative for injury, rash, and discoloration, Neuro: Negative for headache, weakness, numbness, tingling, and seizure. 12:50 MS/extremity: Positive for abrasion, decreased range of motion, pain, swelling, tenderness, of the PIP of left ring finger and left dorsal hand . Exam: 13:20 Constitutional: This is a well developed, well nourished patient who is awake, alert, jr8 and in no acute distress. Cardiovascular: Regular rate and rhythm with a normal S1 and S2. No gallops, murmurs, or rubs. Normal PMI, no JVD. No pulse deficits. Respiratory: Lungs have equal breath sounds bilaterally, clear to auscultation and percussion. No rales, rhonchi or wheezes noted. No increased work of breathing, no retractions or nasal flaring. Skin: Warm, dry with normal turgor. Normal color with no rashes, no lesions, and no evidence of cellulitis. Neuro: Awake and alert, GCS 15, oriented to person, place, time, and situation. Cranial nerves II-XII grossly intact. Motor strength 5/5 in all extremities. Sensory grossly intact. Cerebellar exam normal. Normal gait. 13:20 Musculoskeletal/extremity: Extremities: grossly normal except: noted in the left hand: Patient has small abrasive isma to PIP left ring finger. Dorsal hand swelling over the metacarpal region of the 4th and 5th digit with tenderness also noted. Mild flexion of affected finger noted. Patient has decreased ROM present. Normal sensation and 2 + pulses radial bilaterally. Rest of extremities unremarkable . Vital Signs: 12:02 BP 101 / 79; Pulse 81; Resp 16 S; Temp 98.2(O); Pulse Ox 100% on R/A; Weight 52.16 kg aa5 (R); Height 5 ft. 1 in. (154.94 cm) (R); Pain 6/10; 13:09 BP 104 / 66; Pulse 56; Resp 16; Pulse Ox 99% ; rb1 14:00 BP 106 / 69; Pulse 55; Resp 17; Pulse Ox 100% on R/A; rb1 12:02 Body Mass Index 21.73 (52.16 kg, 154.94 cm) aa5 Procedures: 13:47 Splinting: Splint applied to left hand using Orthoglass splint, applied by nurse. jr8 Examined by me, post splint application: neurovascular intact, 2+ distal pulses palpable, brisk capillary refill noted, Patient tolerated well. MDM: 12:19 Patient medically screened. jr8 13:47 Data reviewed: vital signs, radiologic studies, plain films. Data interpreted: Pulse jr8 oximetry: on room air is 99 %. Interpretation: normal. Counseling: I had a detailed discussion with the patient and/or guardian regarding: the historical points, exam findings, and any diagnostic results supporting the discharge/admit diagnosis, radiology results, the need for outpatient follow up, a orthopedic surgeon, to return to the emergency department if symptoms worsen or persist or if there are any questions or concerns that arise at home. 07/15 12:24 Order name: XRAY Hand LEFT 3 View; Complete Time: 13:32 jr8 07/15 13:23 Order name: Ulnar Gutter splint; Complete Time: 14:11 jr8 Administered Medications: No medications were administered Disposition: 14:30 Co-signature as Attending Physician, Ned Guo MD. rn Disposition: 07/16/19 13:48 Discharged to Home. Impression: Displaced fracture of base of fourth metacarpal bone, left hand. - Condition is Stable. - Discharge Instructions: Metacarpal Fracture. - Prescriptions for Ibuprofen 800 mg Oral Tablet - take 1 tablet by ORAL route every 12 hours As needed take with food; 20 tablet. - Medication Reconciliation Form, Thank You Letter, Antibiotic Education, Prescription Opioid Use, Work release form form. - Follow up: Nicho Reese MD; When: 5 - 6 days; Reason: Recheck today's complaints, Continuance of care, Re-evaluation by your physician. - Problem is new. - Symptoms have improved. Signatures: Dispatcher [employer] EDMS Ned Guo MD MD rn Calderon, Audri, RN RN aa5 Mandeep Quintana PA PA jr8 Cris Hdz, RN RN rb1 Corrections: (The following items were deleted from the chart) 14:21 13:48 07/16/2019 13:48 Discharged to Home. Impression: Displaced fracture of base of rb1 fourth metacarpal bone, left hand. Condition is Stable. Forms are Medication Reconciliation Form, Thank You Letter, Antibiotic Education, Prescription Opioid Use. Follow up: Nicho Reese; When: 5 - 6 days; Reason: Recheck today's complaints, Continuance of care, Re-evaluation by your physician. Problem is new. Symptoms have improved. jr8
== END 2019-07-16 14:21 | disposition home or self-care (01) ==
LOC: ER 11:59
PROC: 2W3DX1Z Immobilization of Left Lower Arm using Splint (ICD-10-PCS; principal; 2019-07-16)
DX: S62.315A Displaced fracture of base of fourth metacarpal bone, left hand, initial encounter for closed fracture (principal); W23.0XXA Caught, crushed, jammed, or pinched between moving objects, initial encounter; Y93.9 Activity, unspecified; Y92.009 Unspecified place in unspecified non-institutional (private) residence as the place of occurrence of the external cause; F17.210 Nicotine dependence, cigarettes, uncomplicated; Z88.0 Allergy status to penicillin
CPT/HCPCS: 99284

== ENCOUNTER 2019-07-19 11:12 | Emergency (ER) | payer SELFPAY ==
--- OUTSIDE RECORDS SUMMARY | 2019-07-19 11:43 | XMS REPORT ---
:2000 Author Organization [facility] t Address [address] [place] [address] Care Team Providers Name Role Phone Nguyen [...] Clinicians Facility Department ID 2019-04-04 2019-04-04 Emergency ROSIO Vincent [id number] 16:05:42 19:19:00 Sherif Rosales [id number] [place] [id number] [place] [id number] 2019-04-04 2019-04-04 Orders Doctor HERNANDEZ [id number] 00:00:00 00:00:00 Only UnassignedANNA [id number] [place] [id number] 2019-04-02 2019-04-02 Emergency CRISTINA Rojas [id number] 18:02:56 19:32:00 Em Rosales [id number] [place] [id number] [place] [id number] 2019-04-02 2019-04-02 Orders Doctor HERNANDEZ [id number] 00:00:00 00:00:00 Only Unassigned, ANNA [id number] [place] [facility] [id number] Results This patient has no known results.
[2019-07-19 14:47] VITALS: BP 111/84; TEMP 97.7; O2SAT 99
--- NOTE | 2019-07-22 16:55 | EDPHYS ---
Physician Documentation [facility] Name: Rivka Johnson Age: 19 yrs Sex: Female : 2000 Arrival Date: 07/19/2019 Time: 11:20 Bed 13 Private MD: ED Physician Zhang Ngo HPI: 07/18 11:50 This 19 yrs old Female presents to ER via EMS with complaints of Anxiety. leatha 11:50 The patient presents to the emergency department with anxiety. Onset: The leatha symptoms/episode began/occurred just prior to arrival. Past psychiatric history: Prior diagnosis: no previous psychiatric diagnosis known. panic, anxiety, in bad home enviroment. Associated signs and symptoms: The patient has no apparent associated signs or symptoms. Severity of symptoms: At their worst the symptoms were mild in the emergency department the symptoms are unchanged. The patient has experienced similar episodes in the past, several times. Historical: - Allergies: 11:26 PENICILLINS; ss - Home Meds: 11:26 None [Active]; ss - PMHx: 11:26 Seizures; ss - PSHx: 11:26 lip sx; ss - Immunization history:: Adult Immunizations up to date. - Social history:: Smoking status: unknown. - Family history:: not pertinent. ROS: 11:50 Constitutional: Negative for fever, chills, and weight loss, Eyes: Negative for injury, leatha pain, redness, and discharge, ENT: Negative for injury, pain, and discharge, Neck: Negative for injury, pain, and swelling, Cardiovascular: Negative for chest pain, palpitations, and edema, Respiratory: Negative for shortness of breath, cough, wheezing, and pleuritic chest pain, Abdomen/GI: Negative for abdominal pain, nausea, vomiting, diarrhea, and constipation, Back: Negative for injury and pain, : Negative for injury, bleeding, discharge, and swelling, MS/Extremity: Negative for injury and deformity, Skin: Negative for injury, rash, and discoloration, Neuro: Negative for headache, weakness, numbness, tingling, and seizure, Allergy/Immunology: Negative for hives, rash, and allergies, Endocrine: Negative for neck swelling, polydipsia, polyuria, polyphagia, and marked weight changes, Hematologic/Lymphatic: Negative for swollen nodes, abnormal bleeding, and unusual bruising. 11:50 Psych: Positive for anxiety. Exam: 11:50 Constitutional: This is a well developed, well nourished patient who is awake, alert, leatha and in no acute distress. Head/Face: Normocephalic, atraumatic. Eyes: Pupils equal round and reactive to light, extra-ocular motions intact. Lids and lashes normal. Conjunctiva and sclera are non-icteric and not injected. Cornea within normal limits. Periorbital areas with no swelling, redness, or edema. ENT: Nares patent. No nasal discharge, no septal abnormalities noted. Tympanic membranes are normal and external auditory canals are clear. Oropharynx with no redness, swelling, or masses, exudates, or evidence of obstruction, uvula midline. Mucous membranes moist. Neck: Trachea midline, no thyromegaly or masses palpated, and no cervical lymphadenopathy. Supple, full range of motion without nuchal rigidity, or vertebral point tenderness. No Meningismus. Chest/axilla: Normal chest wall appearance and motion. Nontender with no deformity. No lesions are appreciated. Cardiovascular: Regular rate and rhythm with a normal S1 and S2. No gallops, murmurs, or rubs. Normal PMI, no JVD. No pulse deficits. Respiratory: Lungs have equal breath sounds bilaterally, clear to auscultation and percussion. No rales, rhonchi or wheezes noted. No increased work of breathing, no retractions or nasal flaring. Abdomen/GI: Soft, non-tender, with normal bowel sounds. No distension or tympany. No guarding or rebound. No evidence of tenderness throughout. Back: No spinal tenderness. No costovertebral tenderness. Full range of motion. Skin: Warm, dry with normal turgor. Normal color with no rashes, no lesions, and no evidence of cellulitis. MS/ Extremity: Pulses equal, no cyanosis. Neurovascular intact. Full, normal range of motion. Neuro: Awake and alert, GCS 15, oriented to person, place, time, and situation. Cranial nerves II-XII grossly intact. Motor strength 5/5 in all extremities. Sensory grossly intact. Cerebellar exam normal. Normal gait. Psych: Awake, alert, with orientation to person, place and time. Behavior, mood, and affect are within normal limits. Vital Signs: 11:26 BP 111 / 84; Pulse 73; Resp 17; Temp 97.7(O); Pulse Ox 99% on R/A; Weight 52.16 kg; ss Height 5 ft. 2 in. (157.48 cm); Pain 0/10; 11:26 Body Mass Index 21.03 (52.16 kg, 157.48 cm) ss MDM: 11:20 Patient medically screened. [facility] 11:52 Data reviewed: vital signs, nurses notes. [facility] 11:53 Differential diagnosis: drug withdrawal. acute psychotic break, depression. Data [facility] interpreted: secured entrance monitor: not applicable for this patient encounter. Pulse oximetry: on room air is 99 %. Counseling: I had a detailed discussion with the patient and/or guardian regarding: the historical points, exam findings, and any diagnostic results supporting the discharge/admit diagnosis, the need for outpatient follow up, for definitive care, a psychiatrist. 12:00 ED course: pt stable, no suicidal and not homicidal. leatha Administered Medications: No medications were administered Disposition: 07/19/19 11:55 Discharged to Home. Impression: Anxiety disorder, unspecified, Panic disorder [episodic paroxysmal anxiety] without agoraphobia. - Condition is Stable. - Discharge Instructions: Panic Attacks, Panic Attacks, [id number]. - Prescriptions for Hydroxyzine HCl 25 mg Oral Tablet - take 1 tablet by ORAL route every 6 hours As needed; 30 tablet. - Medication Reconciliation Form, Thank You Letter, Antibiotic Education, Prescription Opioid Use form. - Follow up: Private Physician; When: 2 - 3 days; Reason: Recheck today's complaints, Continuance of care, Re-evaluation by your physician. Follow up: Jordy Yeung MD; When: 2 - 3 days; Reason: Recheck today's complaints, Re-evaluation by your physician. - Problem is new. - Symptoms have improved. Signatures: Zhang Ngo MD MD cha Smirch, Shelby, RN RN ss Brenna Ng RN RN ls4 Corrections: (The following items were deleted from the chart) 14:40 11:55 07/19/2019 11:55 Discharged to Home. Impression: Anxiety disorder, unspecified; ls4 Panic disorder [episodic paroxysmal anxiety] without agoraphobia. Condition is Stable. Forms are Medication Reconciliation Form, Thank You Letter, Antibiotic Education, Prescription Opioid Use. Follow up: Private Physician; When: 2 - 3 days; Reason: Recheck today's complaints, Continuance of care, Re-evaluation by your physician. Follow up: Jordy Yeung; When: 2 - 3 days; Reason: Recheck today's complaints, Re-evaluation by your physician. Problem is new. Symptoms have improved. leatha
--- NOTE | 2019-07-22 16:55 | ER ---
Nurse's Notes [facility] Name: Rivka Johnson Age: 19 yrs Sex: Female : 2000 Arrival Date: 07/19/2019 Time: 11:20 Bed 13 Private MD: Diagnosis: Anxiety disorder, unspecified;Panic disorder [episodic paroxysmal anxiety] without agoraphobia Presentation: 07/18 11:26 Chief complaint: EMS states: "Called out for seizure. Upon arrival, it was noted that ss patient was rather having a panic attack." Pt reports she is under a lot of stress at home and when she gets stressed, she becomes stiff and hyperventilates. Pt reports she is feeling much better after being medicated en route with Ativan 2 mg IVP. Coronavirus screen: Proceed with normal triage. Ebola Screen: Patient denies exposure to infectious person. Patient denies travel to an Ebola-affected area in the 21 days before illness onset. Initial Sepsis Screen: Does the patient meet any 2 criteria? No. Patient's initial sepsis screen is negative. Does the patient have a suspected source of infection? No. Patient's initial sepsis screen is negative. Risk Assessment: Do you want to hurt yourself or someone else? Patient reports no desire to harm self or others. Onset of symptoms was July 19, 2019. 11:26 Method Of Arrival: EMS: [facility] 11:26 Acuity: LEENA 3 ss 11:29 Care prior to arrival: Medication(s) given: Ativan 2 mg IVP IV initiated. 20 GA, in the ss right forearm. Historical: - Allergies: 11:26 PENICILLINS; ss - Home Meds: 11:26 None [Active]; ss - PMHx: 11:26 Seizures; ss - PSHx: 11:26 lip sx; ss - Immunization history:: Adult Immunizations up to date. - Social history:: Smoking status: unknown. - Family history:: not pertinent. Screenin:26 Abuse screen: Denies threats or abuse. Denies injuries from another. Nutritional ss screening: No deficits noted. Tuberculosis screening: Never had TB. Fall Risk None identified. Assessment: 11:21 General: Appears in no apparent distress. Behavior is calm, cooperative, Reports severe ss anxiety just prior to arrival. Pt reports she is feeling much better after being medicated by EMS personnel en route. Pt states she has a lot of stress at home. Denies fever, feeling ill, fatigue, chills. Pain: Denies pain. Neuro: Level of Consciousness is awake, alert, obeys commands, Oriented to person, place, time, situation, Supervisor Smoke Control are equal bilaterally Speech is normal. Cardiovascular: Capillary refill < 3 seconds is brisk in bilateral fingers. Respiratory: Airway is patent Respiratory effort is even, unlabored, Respiratory pattern is regular, symmetrical. GI: Patient currently denies nausea. : No signs and/or symptoms were reported regarding the genitourinary system. EENT: Nares are clear Oral mucosa is moist. Derm: Skin is intact, is healthy with good turgor, Skin is dry, Skin is pink, warm \\T\\ dry. normal. Musculoskeletal: Circulation, motion, and sensation intact. Capillary refill < 3 seconds, is brisk, in bilateral fingers. Range of motion: intact in all extremities, Swelling absent orthoglass splint noted to L FA. Pt reports she was seen in ER Monday for an oblique fracture. Vital Signs: 11:26 BP 111 / 84; Pulse 73; Resp 17; Temp 97.7(O); Pulse Ox 99% on R/A; Weight 52.16 kg; ss Height 5 ft. 2 in. (157.48 cm); Pain 0/10; 11:26 Body Mass Index 21.03 (52.16 kg, 157.48 cm) ED Course: 11:20 Patient arrived in ED. ca1 11:20 Zhang Ngo MD is Attending Physician. leatha 11:26 Arm band placed on right wrist. 11:28 Triage completed. 11:29 Maintain EMS IV. Dressing intact. Good blood return noted. Site clean \\T\\ dry. Gauge \\T\\ ss site: 20 gauge in R FA. 11:55 Jordy Yeung MD is Referral Physician. leatha 14:18 Brenna Ng, RN is Primary Nurse. ls4 Administered Medications: No medications were administered Outcome: 11:55 Discharge ordered by . leatha 14:40 Patient left the ED. ls4 Signatures: Zhang Ngo MD MD cha Smirch, Shelby, RN RN Brenna Ng, TOYA RN ls4 Jailene Bojorquez RN RN ca1
== END 2019-07-19 14:40 | disposition home or self-care (01) ==
LOC: ER 11:12
DX: F41.0 Panic disorder [episodic paroxysmal anxiety] (principal); Z88.0 Allergy status to penicillin
CPT/HCPCS: 99282

== ENCOUNTER 2019-08-01 11:34 | Emergency (ER) | payer SELFPAY ==
--- OUTSIDE RECORDS SUMMARY | 2019-08-01 11:53 | XMS REPORT | Continuity of Care Document ---
:2000 Author Organization [facility] t Address [address] [place] [address] Care Team Providers Name Role Phone Nguyen [...] Facility Department ID 2019-04-04 2019-04-04 Emergency [place] [facility] [id number] 16:05:42 19:19:00 Sherif Rosales [id number] [place] [id number] [place] [id number] 2019-04-04 2019-04-04 Orders Doctor HERNANDEZ [id number] 00:00:00 00:00:00 Only UnassignedANNA [id number] [place] [id number] 2019-04-02 2019-04-02 Emergency [place]JENNIF[place] [id number] 18:02:56 19:32:00 Em Rosales [id number] [place] [id number] [place] [id number] 2019-04-02 2019-04-02 Orders Doctor HERNANDEZ [id number] 00:00:00 00:00:00 Only Unassigned, ANNA [id number] [place] [facility] [id number] Results This patient has no known results.
--- NOTE | 2019-08-01 13:02 | EDPHYS ---
Physician Documentation [facility] Name: Rivka Johnson Age: 19 yrs Sex: Female : 2000 Arrival Date: 08/01/2019 Time: 11:37 Bed 12 Private MD: ED Physician Samir Mcmahon HPI: 07/31 12:06 This 19 yrs old Female presents to ER via Ambulatory with complaints of Hand kb Injury. 12:06 The patient or guardian reports a contusion, injury, pain, swelling, tenderness. The kb complaints affect the right hand. Context: The problem was sustained outdoors, resulted from a crush injury, by a car door. Onset: The symptoms/episode began/occurred last night. Modifying factors: The symptoms are alleviated by nothing, the symptoms are aggravated by nothing. Associated signs and symptoms: The patient has no apparent associated signs or symptoms. Severity of symptoms: At their worst the symptoms were moderate, in the emergency department the symptoms are unchanged. The patient has not experienced similar symptoms in the past. The patient has not recently seen a physician. Pt reports she accidentally caught hand in car door when trying to close it last night. . Historical: - Allergies: 11:47 PENICILLINS; hb - Home Meds: 11:47 Ibuprofen Oral [Active]; Hydroxyzine Oral [Active]; hb - PMHx: 11:47 Seizures; hb - PSHx: 11:47 lip sx; hb - Immunization history:: Adult Immunizations up to date. - Social history:: Smoking status: Patient denies any tobacco usage or history of. ROS: 12:05 Constitutional: Negative for fever, chills, and weight loss, Cardiovascular: Negative kb for chest pain, palpitations, and edema, Respiratory: Negative for shortness of breath, cough, wheezing, and pleuritic chest pain, Abdomen/GI: Negative for abdominal pain, nausea, vomiting, diarrhea, and constipation, Back: Negative for injury and pain, Neuro: Negative for headache, weakness, numbness, tingling, and seizure. 12:05 MS/extremity: Positive for injury or acute deformity, contusion, ecchymosis, pain, swelling, tenderness, of the right hand. Exam: 12:05 Constitutional: This is a well developed, well nourished patient who is awake, alert, kb and in no acute distress. Head/Face: Normocephalic, atraumatic. Chest/axilla: Normal chest wall appearance and motion. Nontender with no deformity. No lesions are appreciated. Cardiovascular: Regular rate and rhythm with a normal S1 and S2. No gallops, murmurs, or rubs. Normal PMI, no JVD. No pulse deficits. Respiratory: Lungs have equal breath sounds bilaterally, clear to auscultation and percussion. No rales, rhonchi or wheezes noted. No increased work of breathing, no retractions or nasal flaring. Abdomen/GI: Soft, non-tender, with normal bowel sounds. No distension or tympany. No guarding or rebound. No evidence of tenderness throughout. Neuro: Awake and alert, GCS 15, oriented to person, place, time, and situation. Cranial nerves II-XII grossly intact. Motor strength 5/5 in all extremities. Sensory grossly intact. Cerebellar exam normal. Normal gait. 12:05 Musculoskeletal/extremity: Extremities: grossly normal except: noted in the right hand: contusion, decreased ROM, ecchymosis, pain, swelling, tenderness, ROM: intact in all extremities, Circulation is intact in all extremities. Sensation intact. Vital Signs: 11:45 BP 116 / 88; Pulse 68; Resp 16; Temp 97.9; Pulse Ox 100% ; Weight 49.9 kg; Height 5 ft. hb 1 in. (154.94 cm); Pain 3/10; 11:45 Body Mass Index 20.78 (49.90 kg, 154.94 cm) hb MDM: 11:43 Patient medically screened. kb 12:05 Data reviewed: vital signs, nurses notes. Data interpreted: Pulse oximetry: on room air kb is 100 %. Interpretation: normal. Counseling: I had a detailed discussion with the patient and/or guardian regarding: the historical points, exam findings, and any diagnostic results supporting the discharge/admit diagnosis, radiology results, the need for outpatient follow up, for definitive care, a orthopedic surgeon, to return to the emergency department if symptoms worsen or persist or if there are any questions or concerns that arise at home. 12:59 Test interpretation: by ED physician or midlevel provider: plain radiologic studies, leah Displaced fracture second metacarpal right hand. 07/31 11:44 Order name: Hand Right 3 View XRAY; Complete Time: 13:26 kb 07/31 11:44 Order name: Ice pack; Complete Time: 12:05 kb 07/31 13:03 Order name: Volar Wrist Splint; Complete Time: 13:30 kb Administered Medications: No medications were administered Disposition: 18:46 Co-signature as Attending Physician, Samir Mcmahon MD I agree with the assessment and kdr plan of care. Disposition: 08/01/19 13:01 Discharged to Home. Impression: Displaced fracture of shaft of second metacarpal bone, right hand. - Condition is Stable. - Discharge Instructions: Metacarpal Fracture, [id number], Cast or Splint Care, Rhuu-ah-Lora. - Prescriptions for Ibuprofen 800 mg Oral Tablet - take 1 tablet by ORAL route every 8 hours As needed take with food; 30 tablet. - Medication Reconciliation Form, Thank You Letter, Antibiotic Education, Prescription Opioid Use form. - Follow up: Emergency Department; When: As needed; Reason: Worsening of condition. Follow up: Private Physician; When: 2 - 3 days; Reason: Recheck today's complaints, Continuance of care, Re-evaluation by your physician. Signatures: Dispatcher [employer] EDMS Karissa Street, RADIO REPAIRMAN-C RADIO REPAIRMAN-Samir Joshi MD MD [facility] Laya Lorenzo RN RN Corrections: (The following items were deleted from the chart) 13:03 12:59 Splint - Ulnar Gutter ordered. kb kb 13:30 12:59 Sling ordered. kb jp3 14:06 13:01 08/01/2019 13:01 Discharged to Home. Impression: Displaced fracture of shaft of hb second metacarpal bone, right hand. Condition is Stable. Discharge Instructions: Metacarpal Fracture, Vdfm-ce-Owbh, Cast or Splint Care, Udsv-ss-Azzt. Prescriptions for Ibuprofen 800 mg Oral Tablet - take 1 tablet by ORAL route every 8 hours As needed take with food; 30 tablet. and Forms are Medication Reconciliation Form, Thank You Letter, Antibiotic Education, Prescription Opioid Use. Follow up: Emergency Department; When: As needed; Reason: Worsening of condition. Follow up: Private Physician; When: 2 - 3 days; Reason: Recheck today's complaints, Continuance of care, Re-evaluation by your physician. kb
--- NOTE | 2019-08-01 13:02 | ER ---
Nurse's Notes [facility] Name: Rivka Johnson Age: 19 yrs Sex: Female : 2000 Arrival Date: 08/01/2019 Time: 11:37 Bed 12 Private MD: Diagnosis: Displaced fracture of shaft of second metacarpal bone, right hand Presentation: 07/31 11:45 Chief complaint: Right hand pain and swelling after she shut hand in car door last hb night. Coronavirus screen: Proceed with normal triage. Ebola Screen: No symptoms or risks identified at this time. Initial Sepsis Screen: Does the patient meet any 2 criteria? No. Patient's initial sepsis screen is negative. Does the patient have a suspected source of infection? No. Patient's initial sepsis screen is negative. Risk Assessment: Do you want to hurt yourself or someone else? Patient reports no desire to harm self or others. Onset of symptoms was July 31, 2019. 11:45 Method Of Arrival: Ambulatory hb 11:45 Acuity: LEENA 4 hb Triage Assessment: 11:47 General: Appears in no apparent distress. Behavior is calm, cooperative. Pain: Pain hb currently is 3 out of 10 on a pain scale. Neuro: Level of Consciousness is awake, alert, obeys commands. Cardiovascular: Patient's skin is warm and dry. Respiratory: Respiratory effort is even, unlabored, Respiratory pattern is regular, symmetrical. Musculoskeletal: mild swelling noted to right hand. Historical: - Allergies: 11:47 PENICILLINS; hb - Home Meds: 11:47 Ibuprofen Oral [Active]; Hydroxyzine Oral [Active]; hb - PMHx: 11:47 Seizures; hb - PSHx: 11:47 lip sx; hb - Immunization history:: Adult Immunizations up to date. - Social history:: Smoking status: Patient denies any tobacco usage or history of. Screenin:06 Abuse screen: Denies threats or abuse. Denies injuries from another. Nutritional hb screening: No deficits noted. Tuberculosis screening: No symptoms or risk factors identified. Fall Risk None identified. Assessment: 12:06 General: see triage. hb Vital Signs: 11:45 BP 116 / 88; Pulse 68; Resp 16; Temp 97.9; Pulse Ox 100% ; Weight 49.9 kg; Height 5 ft. hb 1 in. (154.94 cm); Pain 3/10; 11:45 Body Mass Index 20.78 (49.90 kg, 154.94 cm) hb ED Course: 11:37 Patient arrived in ED. am2 11:[address] [facility]C [facility] kb 11:40 Samir Mcmahon MD is Attending Physician. kb 11:47 Triage completed. hb 11:47 Arm band placed on. hb 12:05 Laya Lorenzo, RN is Primary Nurse. hb 12:06 Patient has correct armband on for positive identification. hb 13:03 Hand Right 3 View XRAY In Process Unspecified. EDMS 13:28 Orthoglass splint: Volar splint applied on right arm. jp3 Administered Medications: No medications were administered Outcome: 13:01 Discharge ordered by . kb 14:06 Patient left the ED. hb Signatures: Dispatcher [employer] EDMS Karissa Street FNP-C WHEEL PRESS OPERATOR-Ckb Laya Lorenzo RN RN Mirella Goldsmith am2 Fredrick Diaz jp3
--- NOTE | 2019-08-01 13:15 | RAD REPORT ---
EXAM DESCRIPTION: RAD - Hand Right 3 View - 08/01/2019 1:03 pm CLINICAL HISTORY: Pain;Swelling Trauma, pain COMPARISON: No comparisons FINDINGS: Mildly impacted fracture is seen involving the second metacarpal neck. Mild adjacent soft tissue swelling. No dislocation.
[2019-08-01 14:10] VITALS: BP 116/88; TEMP 97.9; O2SAT 100
== END 2019-08-01 14:06 | disposition home or self-care (01) ==
LOC: ER 11:34
DX: S62.320A Displaced fracture of shaft of second metacarpal bone, right hand, initial encounter for closed fracture (principal); W23.1XXA Caught, crushed, jammed, or pinched between stationary objects, initial encounter; Y93.9 Activity, unspecified; Y92.89 Other specified places as the place of occurrence of the external cause; Z88.0 Allergy status to penicillin; G40.909 Epilepsy, unspecified, not intractable, without status epilepticus
CPT/HCPCS: 99283

== ENCOUNTER 2020-08-11 08:47 | Emergency (ER) | payer OTHER, SELFPAY ==
--- OUTSIDE RECORDS SUMMARY | 2020-08-11 08:49 | XMS REPORT | Continuity of Care Document ---
:2000 Author Organization [facility] t Address [address] [place] [address] Care Team Providers Name Role Phone FacultyVeronica jessica Attending Clinician Unavailable Problems This patient has no known problems. Allergies, Adverse Reactions, Alerts This patient has no known allergies or adverse reactions. Medications This patient has no known medications. Procedures This patient has no known procedures. Encounters Start End Encounter Admission Attending Care Care Encounter Source Date/Time Date/Time Type Type Clinicians Facility Department ID 2020-08-10 2020-08-10 [facility] Faculty, [facility] [id number] 08:50:13 09:05:13 ne Visit [facility] QUALITY NURSE [id number] [facility] [id number] MATERNAL [id number] & CHILD [address] [facility] 2020-07-31 2020-07-31 Telephone Faculty, [facility] [id number] 00:00:00 00:00:00 [facility] QUALITY NURSE [id number] [facility] [id number] MATERNAL [id number] & CHILD [facility] Results This patient has no known results.
[2020-08-11 09:26] LABS: Absolute Lymphocytes (CBC) 1.9 K/uL (0.7-4.9); Basophils % 0.5 % (0-1.3); Lymphocytes % 19.2 % (15.3-44.8); MPV 10.3 fL (7.6-11.3); Protime INR 0.96; RBC Red Blood Cell Count 3.38 M/uL (3.86-4.86)
[2020-08-11 09:46] LABS: ALT/SGPT 15 U/L (12-78); AST/SGOT 9 U/L (15-37); Albumin 3.1 g/dL (3.4-5.0); Alkaline Phosphatase 61 U/L (45-117); BUN Blood Urea Nitrogen 6 mg/dL (7-18); Bicarbonate 24 mmol/L (21-32); Bilirubin Direct < 0.1 mg/dL (0-0.2); Bilirubin Total 0.2 mg/dL (0.2-1.0); Glucose Level 76 mg/dL (74-106); Magnesium 1.6 mg/dL (1.8-2.4); NT PRO-BNP 243 pg/mL (<125); Potassium 3.6 mmol/L (3.5-5.1); Protein, Total 6.4 g/dL (6.4-8.2); Sodium Level 140 mmol/L (136-145); Troponin (Emerg Dept Use Only) < 0.02 ng/mL (0.0-0.045)
--- NOTE | 2020-08-11 10:38 | ER ---
Nurse's Notes [facility] Name: Rivka Johnson Age: 20 yrs Sex: Female : 2000 Arrival Date: 08/11/2020 Time: 08:49 Bed 20 Private MD: Diagnosis: Chest pain, unspecified Presentation: 08/11 08:54 Chief complaint: Patient states: Mid Chest pain for 1 week in the morning mostly. ll1 Notices SOB and hurts more to deep breathe. No cough or fever. Denies N/V/D. 23 weeks , . No vaginal bleeding, + movement. Coronavirus screen: Client denies travel out of the [place] in the last 14 days. difficulty breathing, shortness of breath, Client presents with at least one sign or symptom that may indicate coronavirus-19. Standard/surgical mask placed on the client. Ebola Screen: Patient denies travel to an Ebola-affected area in the 21 days before illness onset. Initial Sepsis Screen: Does the patient meet any 2 criteria? No. Patient's initial sepsis screen is negative. Does the patient have a suspected source of infection? No. Patient's initial sepsis screen is negative. Risk Assessment: Do you want to hurt yourself or someone else? Patient reports no desire to harm self or others. Onset of symptoms was August 04, 2020. 08:54 Method Of Arrival: Ambulatory [facility] 08:54 Acuity: LEENA 3 ll1 CUTTING TABLE OPERATOR: 09:06 2, Full Term 1, Living 1 kg Historical: - Allergies: 08:54 PENICILLINS; ll1 08:54 Otis Concentrate; ll1 - PMHx: 08:54 Seizures; ll1 - PSHx: 08:54 lip sx; ll1 - Immunization history:: Flu vaccine is up to date. - Social history:: Smoking status: Patient reports the use of cigarette tobacco products, smokes one-half pack cigarettes per day. Screenin:51 Abuse screen: Denies threats or abuse. Denies injuries from another. Nutritional ph screening: No deficits noted. Tuberculosis screening: No symptoms or risk factors identified. Fall Risk None identified. Assessment: 08:55 General: Appears in no apparent distress. Behavior is calm, cooperative, appropriate kg for age, quiet, Smells of cigarette smoke. Pain: Complains of pain in xyphoid area and mid-sternal area Pain does not radiate. Pain radiates to epigastric area Pain currently is 1 out of 10 on a pain scale. at worst was 6 out of 10 on a pain scale. level that patient reports is acceptable is 2 out of 10 on a pain scale. Quality of pain is described as sharp, Pain began 2-3 days ago. Is intermittent. Neuro: No deficits noted. Level of Consciousness is awake, alert, obeys commands, confused, Oriented to person, place, time, situation, Appropriate for age. Cardiovascular: Reports chest pain, shortness of breath, Heart tones S1 S2 Capillary refill < 3 seconds Pulses are 2+ in right radial artery and left radial artery Rhythm is sinus tachycardia Chest pain is described as mild, quality is sharp, is located in epigastric area began one week ago. Respiratory: Reports shortness of breath Pt stated, "When I have the chest pain it takes my breath away." Breath sounds are clear. GI: No deficits noted. : No deficits noted. EENT: No deficits noted. Vital Signs: 08:54 BP 120 / 81; Pulse 72; Resp 16; Temp 97.0; Pulse Ox 100% ; Weight 54.43 kg; Height 5 ll1 ft. 1 in. (154.94 cm); 09:18 BP 103 / 75; Pulse 80; Resp 20; Pulse Ox 100% on R/A; kg 10:00 BP 103 / 72; Pulse 62; Resp 18; Pulse Ox 100% ; kg 10:50 BP 102 / 73; Pulse 59; Resp 18; Pulse Ox 100% ; kg 08:54 Body Mass Index 22.67 (54.43 kg, 154.94 cm) ll1 Vitals: 09:17 Heart Tones 158. kg ED Course: 08:49 Patient arrived in ED. as 08:53 Michael Odell, RN is Primary Nurse. bp 08:54 Breana Canela, TOYA is Primary Nurse. ll1 08:54 Samir Mcmahon MD is Attending Physician. kdr 08:54 Arm band placed on Patient placed in an exam room, on a stretcher. ll1 08:55 Tala Marshall, TOYA is Primary Nurse. kg 08:57 Triage completed. ll1 09:03 Patient has correct armband on for positive identification. Placed in gown. Bed in low mh5 position. Call light in reach. Side rails up X 1. Warm blanket given. client care manager on. Pulse ox on. NIBP on. 09:04 EKG done, by ED staff, reviewed by Samir Mcmahon MD. [facility] 09:07 Inserted saline lock: 20 gauge in left antecubital area, using aseptic technique. kg 09:18 Patient maintains SpO2 saturation greater than 95% on room air. kg 09:19 Basic Metabolic Panel Sent. kg 09:19 CBC with Diff Sent. kg 09:19 LFT's Sent. kg 09:19 Magnesium Sent. kg 09:20 NT PRO-BNP Sent. kg 09:20 PT-INR Sent. kg 09:20 Troponin (emerg Dept Use Only) Sent. kg 10:52 No provider procedures requiring assistance completed. IV discontinued, intact, kg bleeding controlled, No redness/swelling at site. Pressure dressing applied. Administered Medications: No medications were administered Outcome: 10:38 Discharge ordered by MD. kdr 10:53 Discharged to home ambulatory. kg 10:53 Condition: improved 10:53 Discharge instructions given to patient, Instructed on discharge instructions, follow up and referral plans. Demonstrated understanding of instructions, follow-up care. 10:54 Patient left the ED. kg Signatures: Samir Mcmahon MD MD kdr Martinez, Amelia as Hall, Patricia, TOYA RN Kylie Alvarez [facility] Michael Odell, RN RN Breana Robb, TOYA RN ll1 Tala Marshall RN RN kg
--- NOTE | 2020-08-11 10:38 | EDPHYS ---
Physician Documentation [facility] Name: Rivka Johnson Age: 20 yrs Sex: Female : 2000 Arrival Date: 08/11/2020 Time: 08:49 Bed 20 Private MD: ED Physician Samir Mcmahon HPI: 08/11 09:59 This 20 yrs old Female presents to ER via Ambulatory with complaints of Chest kdr Pain - 23 wks preg. 09:59 The patient or guardian reports chest pain that is located primarily in the substernal kdr area, epigastric area. The pain does not radiate. Associated signs and symptoms: Pertinent positives: shortness of breath. The chest pain is described as aching, burning. Duration: The patient or guardian reports multiple episodes, that are intermittent, She notes the discomfort when she first wakes up in the morning and then after 60-90 minutes the discomfort resolves and she does not experience it again the rest of the day no matter her activity level.. Modifying factors: The symptoms are alleviated by nothing. the symptoms are aggravated by nothing. Severity of pain: At its worst the pain was mild moderate just prior to arrival, in the emergency department the pain has improved markedly. The patient has experienced similar episodes in the past, multiple times, On going for the last week or so. EQUIPMENT LEAD: 09:06 2, Full Term 1, Living 1 kg Historical: - Allergies: 08:54 PENICILLINS; ll1 08:54 [place]kes Concentrate; ll1 - PMHx: 08:54 Seizures; ll1 - PSHx: 08:54 lip sx; ll1 - Immunization history:: Flu vaccine is up to date. - Social history:: Smoking status: Patient reports the use of cigarette tobacco products, smokes one-half pack cigarettes per day. ROS: 09:59 Constitutional: Negative for fever, chills, and weight loss, Eyes: Negative for injury, kdr pain, redness, and discharge, ENT: Negative for injury, pain, and discharge, Neck: Negative for injury, pain, and swelling, Respiratory: Negative for shortness of breath, cough, wheezing, and pleuritic chest pain, Abdomen/GI: Negative for abdominal pain, nausea, vomiting, diarrhea, and constipation, Back: Negative for injury and pain, : Negative for injury, bleeding, discharge, and swelling, MS/Extremity: Negative for injury and deformity, Skin: Negative for injury, rash, and discoloration, Neuro: Negative for headache, weakness, numbness, tingling, and seizure activity. Psych: Negative for depression, anxiety, suicide ideation, homicidal ideation, and hallucinations, Allergy/Immunology: Negative for hives, rash, and allergies, Endocrine: Negative for neck swelling, polydipsia, polyuria, polyphagia, and marked weight changes, Hematologic/Lymphatic: Negative for swollen nodes, abnormal bleeding, and unusual bruising. 09:59 Cardiovascular: Positive for chest pain, of the xyphoid area. Exam: 09:58 ECG was reviewed by the Attending Physician. kdr 09:59 Constitutional: This is a well developed, well nourished patient who is awake, alert, kdr and in no acute distress. Head/Face: Normocephalic, atraumatic. Eyes: Pupils equal round and reactive to light, extra-ocular motions intact. Lids and lashes normal. Conjunctiva and sclera are non-icteric and not injected. Cornea within normal limits. Periorbital areas with no swelling, redness, or edema. Neck: Trachea midline, no thyromegaly or masses palpated, and no cervical lymphadenopathy. Supple, full range of motion without nuchal rigidity, or vertebral point tenderness. No Meningismus. Chest/axilla: Normal chest wall appearance and motion. Nontender with no deformity. No lesions are appreciated. Cardiovascular: Regular rate and rhythm with a normal S1 and S2. No gallops, murmurs, or rubs. Normal PMI, no JVD. No pulse deficits. Respiratory: Lungs have equal breath sounds bilaterally, clear to auscultation and percussion. No rales, rhonchi or wheezes noted. No increased work of breathing, no retractions or nasal flaring. Abdomen/GI: Soft, non-tender, with normal bowel sounds. No distension or tympany. No guarding or rebound. No evidence of tenderness throughout. Back: No spinal tenderness. No costovertebral tenderness. Full range of motion. Skin: Warm, dry with normal turgor. Normal color with no rashes, no lesions, and no evidence of cellulitis. MS/ Extremity: Pulses equal, no cyanosis. Neurovascular intact. Full, normal range of motion. Neuro: Awake and alert, GCS 15, oriented to person, place, time, and situation. Cranial nerves II-XII grossly intact. Motor strength 5/5 in all extremities. Sensory grossly intact. Cerebellar exam normal. Normal gait. Psych: Awake, alert, with orientation to person, place and time. Behavior, mood, and affect are within normal limits. 09:59 Abdomen/GI: Inspection: gravid appearance, is noted, Bowel sounds: normal, Palpation: soft, nontender. Vital Signs: 08:54 BP 120 / 81; Pulse 72; Resp 16; Temp 97.0; Pulse Ox 100% ; Weight 54.43 kg; Height 5 ll1 ft. 1 in. (154.94 cm); 09:18 BP 103 / 75; Pulse 80; Resp 20; Pulse Ox 100% on R/A; kg 10:00 BP 103 / 72; Pulse 62; Resp 18; Pulse Ox 100% ; kg 10:50 BP 102 / 73; Pulse 59; Resp 18; Pulse Ox 100% ; kg 08:54 Body Mass Index 22.67 (54.43 kg, 154.94 cm) ll1 MDM: 10:38 Patient medically screened. kdr 12:07 Differential diagnosis: acute myocardial infarction, acute pericarditis, anxiety. Data kdr reviewed: vital signs, nurses notes, lab test result(s). Counseling: I had a detailed discussion with the patient and/or guardian regarding: the historical points, exam findings, and any diagnostic results supporting the discharge/admit diagnosis, lab results, the need for outpatient follow up. 08/11 08:55 Order name: Basic Metabolic Panel kdr 08/11 08:55 Order name: CBC with Diff kdr 08/11 08:55 Order name: LFT's kdr 08/11 08:55 Order name: Magnesium kdr 08/11 08:55 Order name: NT PRO-BNP kdr 08/11 08:55 Order name: PT-INR kdr 08/11 08:55 Order name: Troponin (emerg Dept Use Only) kdr 08/11 09:39 Order name: CBC with Automated Diff; Complete Time: 09:50 EDMS 08/11 09:39 Order name: Protime (+INR); Complete Time: 09:50 EDMS 08/11 09:46 Order name: Basic Metabolic Panel; Complete Time: 09:50 EDMS 08/11 09:46 Order name: Liver (Hepatic) Function; Complete Time: 09:50 [facility] 08/11 09:46 Order name: Troponin (Emerg Dept Use Only); Complete Time: 09:50 [facility] 08/11 09:46 Order name: NT PRO-BNP; Complete Time: 09:50 [facility] 08/11 09:46 Order name: Magnesium; Complete Time: 09:50 [facility] 08/11 08:55 Order name: XRAY Chest (1 view) [facility] 08/11 08:55 Order name: EKG; Complete Time: 08:56 [facility] 08/11 08:55 Order name: Cardiac monitoring; Complete Time: 09:03 [facility] 08/11 08:55 Order name: EKG - Nurse/Tech; Complete Time: 09:03 [facility] 08/11 08:55 Order name: IV Saline Lock; Complete Time: 09:20 [facility] 08/11 08:55 Order name: Labs collected and sent; Complete Time: 09:20 [facility] 08/11 08:55 Order name: O2 Per Protocol; Complete Time: 09:20 [facility] 08/11 08:55 Order name: O2 Sat Monitoring; Complete Time: 10:18 [facility] EC:58 Rate is 68 beats/min. Rhythm is irregular, Sinus arrythmia with PACs. QRS [place] is kdr Normal. OK interval is normal. QRS interval is normal. QT interval is normal. No Q waves. Clinical impression: Sinus arrythmia. Administered Medications: No medications were administered Disposition: 08/11/20 10:38 Discharged to Home. Impression: Chest pain, unspecified. - Condition is Stable. - Discharge Instructions: Nonspecific Chest Pain, [id number]. - Medication Reconciliation Form, Thank You Letter form. - Follow up: Private Physician; When: 2 - 3 days; Reason: If symptoms return, Further diagnostic work-up, Recheck today's complaints, Continuance of care, Re-evaluation by your physician. - Problem is new. - Symptoms are resolved. Signatures: Dispatcher [employer] [facility] Samir Mcmahon MD MD kdr Breana Canela RN RN ll1 Tala Marshall RN RN kg Corrections: (The following items were deleted from the chart) 10:54 10:38 08/11/2020 10:38 Discharged to Home. Impression: Chest pain, unspecified. kg Condition is Stable. Forms are Medication Reconciliation Form, Thank You Letter, Antibiotic Education, Prescription Opioid Use. Follow up: Private Physician; When: 2 - 3 days; Reason: If symptoms return, Further diagnostic work-up, Recheck today's complaints, Continuance of care, Re-evaluation by your physician. Problem is new. Symptoms are resolved. kdr
[2020-08-11 10:58] VITALS: TEMP 97; O2SAT 100
[2020-08-11 11:03] VITALS: BP 102/73
--- NOTE | 2020-08-12 16:32 | EKG ---
Test Date: 2020-08-11 Test Time: 08:56:48 Time Recorder: TERESA MEASUREMENT RESULTS: Intervals: Rate: 68 [place]: 126 QRSD: 88 QT: 384 QTc: 408 [place]: P: 29 [place]: 126 QRS: 75 T: 49 INTERPRETIVE STATEMENTS: Normal sinus rhythm with sinus arrhythmia Normal ECG Compared to ECG 05/18/2019 16:19:28 No significant changes Electronically Signed On 08-12-20 16:29:57 CDT by Joe Coppola
== END 2020-08-11 10:54 | disposition home or self-care (01) ==
LOC: ER 08:47
DX: O26.892 Other specified pregnancy related conditions, second trimester (principal); O99.332 Smoking (tobacco) complicating pregnancy, second trimester; F17.210 Nicotine dependence, cigarettes, uncomplicated; Z3A.23 23 weeks gestation of pregnancy; Z88.0 Allergy status to penicillin; Z91.018 Allergy to other foods
CPT/HCPCS: 36415; 80048; 80076; 83735; 83880; 84484; 85025; 85610; 93005; 99285

== ENCOUNTER 2022-03-09 03:43 | Emergency (ER) | payer OTHER ==
--- OUTSIDE RECORDS SUMMARY | 2022-03-09 04:26 | XMS REPORT | Continuity of Care Document ---
:2000 Author Organization [facility] t Address [address] [place] [address] Care Team Providers Name Role Phone SHIRA GUTHRIE Primary Care Physician Unavailable KATARINA LIANG Attending Clinician Unavailable SHIRA GUTHRIE Attending Clinician Unavailable [facility] Attending Clinician Unavailable Jerri Shira CROCKER Attending Clinician [phone] Jessica Rand Attending Clinician JESSICA GOMEZ Attending Clinician Unavailable [facility] Attending Clinician Unavailable Lyudmila Barbosa MD Attending Clinician LYUDMILA BARBOSA Attending Clinician Unavailable Clinic, [facility] Continuity Attending Clinician Unavail able Doctor Unassigned, Triumph Attending Clinician Unavailable MARIANNE MEJIAS Attending Clinician Unavailable Marianne Graves Attending Clinician Samara Holliday DO Attending Clinician Gui ANDUJAR, Elliot Attending Clinician Emily ANDUJAR, Yoel Escudero Attending Clinician Garth ANDUJAR, Katarina Cedillo Attending Clinician Ultrasound, Jorge Luis Attending Clinician Unavailable Emma ANDUJAR, Annmarie Cedillo Attending Clinician Karlos ANDUJAR, Glen Vasquez Attending Clinician Candy Law MD, Joanne Attending Clinician [phone] GLEN ROMAN Attending Clinician Unavailable GLEN ROMAN Attending Clinician Unavailable Faculty, Vineet Prescottchp Mfm Attending Clinician Unavailable Junior Marquez MD Attending Clinician ANNMARIE CARTER Attending Clinician Unavailable JAIR MCKEON Attending Clinician Unavailable Risk, Ydk-Xcclo-Af/High Attending Clinician Unavailable Lab, Ang-Rmchp Attending Clinician Unavailable CEFERINO MOON Attending Clinician Unavailable MARIVEL GRIMALDO Attending Clinician Unavailable MARIVEL GRIMALDO Attending Clinician Unavailable Samara Holliday DO Admitting Clinician Payers Payer Name Policy Type Policy Number Effective Date Expiration Date [facility] [id number] 2020 CHOICE MEDICAID 00:00:00 MEDICAID [facility] [id number] 2020 00:00:00 MEDICAID PENDING PENDING 2020 00:00:00 [facility] [id number] 2018 00:00:00 Problems Condition Condition Condition Status Onset Resolution Last Treating Co mments Source Name Details Category Date Date Treatment Clinician Date Encounter Encounter Disease Active 2020-02 Uni vers for for 1-29 ity of initial initial 00:00: [place] prescripti prescripti 00 Me dical on of on of Branch injectable injectable contracept contracept brendon brendon History of History of Disease Active Overview : Univers seizure seizure 2- Formattin ity o f 00:00: g of this [place] 00 note Medical might be Branch different from the original. Reports due to anxiety Reports last seizure activity was 12/2019Re ports was on meds for about 1 month but self d/c History of History of Disease Active U nivers asthma asthma 5-08 ity of 00:00: [place] 00 Medical Branch Personal Personal Disease Active Overview: Un paulina history of history of 5-07 Formattin ity of allergy to allergy to 00:00: g of this [place] penicillin penicillin 00 note Me dical might be Branch different from the original. Patient reports anaphylax is reaction Allergies, Adverse Reactions, Alerts Allergy Allergy Status Severity Reaction(s) Onset Inactive Treating Comm ents Source Name Type Date Date Clinician ORANGE DRUG Active Anaphylaxis Unive rs INGREDI 4-05 ity of 00:00: [place] 00 Medical Branch Rains Propensi Active Anaphylaxis 2020- Uni vers ty to 4-05 ity of adverse 00:00: [place] reaction 00 Medical s Branch Penicill Propensi Active Anaphylaxis 2017-0 U nivers in ty to 817 ity of adverse 00:00: [place] reaction 00 Medical s Branch PENICILL DRUG Active High Anaphylaxis 2017-0 Uni vers IN INGREDI 10-06 ity of 00:00: [place] 00 Medical [place] Social History Social Habit Start Date Stop Date Quantity Comments Source Exposure to Not sure University of SARS-CoV-2 (event) [facility] History of tobacco Cigarette Smoker University of use [facility] Alcohol intake 2021-04-27 2021-04-27 1.43 /d University of 00:00:00 00:00:00 [facility] Cigarettes smoked 2017-10-06 2017-10-06 Univers ity of current (pack per 00:00:00 00:00:00 ) - Reported Branch Cigarette 2017-10-06 2017-10-06 University of pack-years 00:00:00 00:00:00 [facility] Tobacco use and 2017-10-06 2017-10-06 Never used Universit y of exposure 00:00:00 00:00:00 [facility] Sex Assigned At [birth year] Universit y of 00:00:00 00:00:00 [facility] Smoking Status Start Date Stop Date Source Current every day smoker 2017-10-06 00:00:00 Uni versity of [facility] Medications Ordered Filled Start Stop Current Ordering Indication Dosage Frequency Signature Comments Components Source Medication Medication Date Date Medication? Clinician (SIG) Name Name amitriptyli 2020-02 Yes [id number] 10mg Take 1 Univers ne 10 mg 2-30 tablet by ity of tablet 00:00: mouth at [place] 00 bedtime. Medical Branch magnesium 2020-02 Yes [id number] 400mg Take 1 Univers oxide 400 2-30 tablet by ity o f mg (241.3 00:00: mouth [place] mg 00 daily. Medical magnesium) Branch tablet levETIRAcet 2020-02 Yes [id number] 2000mg Take 2,000 Univers am 1,000 mg 2-30 mg by ity of Tb24 00:00: mouth at [place] 00 bedtime. Medical Branch foLIC acid 2020-02 Yes [id number] 1mg Take 1 Univers 1 mg tablet 2-30 tablet by ity of 00:00: mouth [place] 00 daily. Medical Branch medroxyPROG 2020-02- No [id number] 150mg Univers ESTERone 03-20 ity of (DEPO-PROVE 20:45: 19:44 [place] RA) 00 :00 Medical injection Branch 150 mg medroxyPROG 2020-02- No [id number] 150mg 150 mg, Univers ESTERone 03-20 Intramuscu ity of (DEPO-PROVE 20:45: 19:44 lar, [place] RA) 00 :00 [id number], Medical injection 4 doses, Branch 150 mg First dose on Mon01/18/21 at 1445, Last dose on Mon09/27/21 at 1445, Routine Immunizations Ordered Filled Immunization Date Status Comments [facility] e Immunization Name Name TDAP 2020-10-[address] [facility] 00:00:00 [facility] TDAP 2018-04-[address] [facility] 00:00:00 [facility] TDAP (ADACEL) 2013-02-20 Completed [facility] 00:00:00 [facility] Vital Signs Vital Name Observation Time Observation Value Comments Source Systolic blood 2021-04-27 20:16:00 121 mm[facility]Hg[facility] Diastolic blood 2021-04-27 20:16:00 81 mm[Hg] [facility] [place] Heart rate 2021-04-27 20:16:00 94 /min [facility] Body temperature 2021-04-27 20:16:00 36.06 [facility] Respiratory rate 2021-04-27 20:16:00 16 /min [facility] Body height 2021-04-27 20:16:00 157.5 cm [facility] Body weight 2021-04-27 20:16:00 56.11 kg [facility] BMI 2021-04-27 20:16:00 22.63 kg/m2 [facility] Procedures This patient has no known procedures. Encounters Start End Encounter Admission Attending Care Care Encounter Source Date/Time Date/Time Type Type Clinicians Facility Department ID 2020-12-22 Outpatient [facility] [id number] Univers 07:18:31 ity of [facility] 2020-12-20 Emergency [facility] [id number] [facility] 10:38[facility] 2021-07-21 2021-07-21 Outpatient R [facility] [id number] Univers 10:30:00 10:30:00 ity [facility] 2021-05-20 2021-05-20 [id number] Univers 15:00:00 15:00:00 KATARINA ity [facility] 2021-04-27 2021-04-27 [facility] [id number] Univers 14:45:00 14:45:00 SHIRA villa [facility] 2021-04-27 2021-04-27 Nurse Visit, [facility] Nurse [facility] 1.2 .840.114 [id number] Univers 14:45:00 14:45:00 Visit Shira Guthrie [employer] 350.1.13. 10 ity of [facility] 4.2.7.2.686 Yuval as MATERNAL [id number] [facility] ical & CHILD [address] [place] [address] 2021-04-27 2021-04-27 Telephone Jerri [facility] 1.2.840.114 [id number] Univers 00:00:00 00:00:00 Shira Palencia [employer] [id number] ity of [facility] 4.2.7.2.686 Yuval as MATERNAL [id number] [facility] & CHILD [address] [place] [address] 2021-04-12 2021-04-12 Outpatient R [facility] [id number] Univers 14:00:00 14:00:00 ity [facility] 2021-04-12 2021-04-12 Outpatient R [facility] [id number] Univers 14:00:00 14:00:00 ity [facility] 2021-04-12 2021-04-12 [facility] [id number] Univers 14:00:00 14:00:00 SHIRA villa [facility] 2021-03-112021-03-11 Telephone [facility] [id number] Univers 00:00:00 00:00:00 Jessica R [employer] 350.1.13.10 ity of REGIONAL 4.2.7.2.686 Yuval as MATERNAL [id number] [facility] ical & CHILD [address] [place] [address] 2021-03-09 2021-03-09 Office Patricia [facility] 1.2.840.114 [id number] Univers 14:30:00 15:29:48 Visit Jessica Cedillo [employer] 350.1.13.10 ity of [facility] 4.2.7.2.686 Yuval as MATERNAL [id number] [facility] & [address] 2021-03-09 2021-03-09 [facility] [id number] Univers 14:30:00 15:29:48 JESSICA chavez o allen [facility] 2021-03-09 2021-03-09 Out[facility] [id number] Univers 14:30:00 14:30:00 JESSICA chavez o [facility] 2021-02-18 2021-02-18 Radar Engineer [facility] UNIVERSIT 1.2.840.114 [id number] Univers 15:45:00 16:00:00 Visit Lyudmila Barbosa [facility] 350.1.13.10 ity of CLINICS 4.2[place]7.2.[place] [id number] [facility] [address] 2021-02-18 2021-02-18 Outpatient R LYUDMILA BARBOSA [facility] [id number] Univers 15:45:00 15:45:00 ity of [facility] 2021-02-18 2021-02-18 Office Clinic, [facility] Contin uity UNIVERSIT 1.2.840.114 [id number] Univers 15:00:00 15:30:00 Visit Lyudmila Barbosa [facility] 350.1.13.10 ity of CL[place]ICS 4.[place].7.2.[place] [id number] [facility] [address] 2021-02-18 2021-02-18 Outpatient R LYUDMILA BARBOSA [facility] [id number] Univers 15:00:00 15:00:00 ity of [facility] 2021-02-18 2021-02-18 Outpatient R LYUDMILA BARBOSA [facility] [id number] Univers 15:00:00 15:00:00 ity of [facility] 2021-02-11 2021-02-11 Outpatient R LYUDMILA BARBOSA [facility] [id number] Univers 13:30:00 13:30:00 ity [facility] 2021-01-29 2021-01-29 [facility] 1.2.840.114 [id number] Univers 12:34:30 23:59:00 Encounter S [place] 350.1.13.10 ity [facility] 4.2.7.2.686 [facility] [id number] [facility] [address] 2021-01-29 2021-01-29 Outpatient R LYUDMILA BARBOSA [facility] [id number] Univers 12:33:51 12:33:51 ity of [facility] 2021-01-29 2021-01-29 [facility] 1.2.840.114 [id number] Univers 12:33:51 12:33:51 Encounter S AN[place]ESHAD 350.1.13.10 ity [facility] 4.2.7.2.686 [facility] [id number] [facility] [address] 2021-01-29 2021-01-29 Orders Doctor HERNANDEZ 1.2.840.114 [id number] Univers 00:00:00 00:00:00 Only Unassigned, ANNA 350.1.13.[address] [facility] 4.2.7.2.686 Yuval [id number] [facility] 009 [address] 2021-01-25 2021-01-25 Outpatient R FAMILIA LYUDMILA [facility] [id number] Univers 00:00:00 00:00:00 ity [facility] 2021-01-18 2021-01-18 [facility] [id number] Univers 14:15:00 14:48:18 MARIANNE itmilla [facility] 2021-01-18 2021-01-18 Office [facility] 1.2.570.552 [id number] Univers 14:08:43 14:48:18 Visit Marianne Timmons [employer] 350.1.13.10 it y of REGIONAL 4.2.7.2.686 Yuval as MATERNAL [id number] [facility] ical & CHILD [address] [place] [address] 2021-01-18 2021-01-18 Outpatient Nguyen MEJIAS [facility] [id number] Univers 14:15:00 14:15:00 MARIANNE chavez [facility] 2021-01-08 2021-01-08 Telephone Lyudmila Barbosa [facility]ERS[facility] 1.2.840.11 [id number] Univers 00:00:00 00:00:00 S Y HEALTH 350.1.13.10 i ty of [facility] 4.2.7.2.[place] [id number] [address] 2021-01-07 2021-01-07 Outpatient LYUDMILA REYES [facility] [id number] Univers 15:00:00 15:00:00 [facility] 2021-01-07 2021-01-07 Radar Engineer [facility] UNIVERSIT 1.2.840.114 [id number] Univers 14:28:50 14:43:50 Visit Lyudmila Barbosa S HEALTH 350.1.13.10 ity of [facility] 4.2.7.2.686 [place] [id number] [facility] [address] 2021-01-07 2021-01-07 Outpatient LYUDMILA REYES [facility] [id number] Univers 14:00:00 14:00:00 [facility] 2021-01-07 2021-01-07 Outpatient R LYUDMILA BARBOSA [facility] [id number] Univers 14:00:00 14:00:00 [facility] 2021-01-07 2021-01-07 Office Clinic, [facility] Contin uity UNIVERSIT 1.2.840.114 [id number] Univers 13:26:44 13:56:44 Visit Lyudmila Barbosa S Y HEALTH 350.1.13.10 ity of [facility] 4.2.7.2.686 [place] [id number] [place] [id number] [place] 2020-12-28 2020-12-28 Routine Randell [facility] 1.2.355.131 [id number] Univers 14:17:39 14:49:02 Marianne N [employer] 350.1.13.10 i ty of Visit [facility] 4.2.7.2.686 Yuval as MATERNAL [id number] Med ical & CHILD 107 [facility] 2020-12-28 2020-12-28 Outpatient [facility] [id number] Univers 14:15:00 14:49:02 MARIANNE ity of [facility] 2020-12-05 2020-12-06 Hospital DAVID Holliday 1.2.840.114 [id number] Univers 11:13:00 21:26:00 Encounter Samara CASTILLO 350.1.13.[address] [facility] 4.2.7.2.686 Yuval as [id number] [facility] [address] 2020-12-05 2020-12-05 Anesthesia DAVID Messer 1.2.840.114 [id number] Univers 21:26:57 21:26:57 Event Elliot CASTILLO 350.1.13.10 it y of HOSPITAL 4.2.7.2.686 Yuval as [id number] [facility] [address] 2020-12-05 2020-12-05 Anesthesia Elliot Messer 1.2.840.1 [id number] Univers 13:00:00 21:18:00 Event Yoel Diaz 350.1.13.[address] [facility] 4.2.7.2.686 Yuval as [id number] [facility] [address] 2020-12-03 2020-12-03 Radar Engineer [facility] UNIVERSIT 1.2.840.114 [id number] Univers 15:14:50 15:29:50 Visit Lyudmila Barbosa S Y [facility] 350.1.13.10 ity of CLINICS 4.[place].2.[place] [id number] [facility] [address] 2020-12-03 2020-12-03 Office Clinic, [facility]ity UNIVERS[facility] 1.2.840.114 [id number] Univers 13:58:19 14:28:19 Visit Garth Katarina [facility] 350.1.13. 10 ity of CL[place] [id number] [address] 2020-12-03 2020-12-03 Outpatient R [facility] [id number] Univers 14:00:00 14:00:00 ity [facility] 2020-12-02 2020-12-02 Telephone [facility] 1.2.840.114 [id number] Univers 00:00:00 00:00:00 Marianne Timmons [employer] 350.1.13.10 it y of [facility] 4.2.7.2.686 Yuval as MATERNAL [id number] Med ical & CHILD [address] [place] [address] 2020-12-02 2020-12-02 Telephone [facility] 1.2.840.114 [id number] Univers 00:00:00 00:00:00 Marianne Timmons [employer] 350.1.13.10 it y of REGIONAL 4.2.7.2.686 Yuval as MATERNAL [id number] [facility] & [address] 2020-12-01 2020-12-01 Outpatient P [facility] [id number] Univers 09:00:00 09:00:00 ity of [facility] 2020-11-30 2020-11-30 Routine [facility] 1.2.081.346 [id number] Univers 12:52:38 13:37:58 Shira Palencia [employer] 350.1.13.10 ity of Visit REGIONAL 4.2.7.2.686 Yuval as MATERNAL [id number] [facility] & CHILD [address] [place] [address] 2020-11-30 2020-11-30 [facility] [id number] Univers 12:45:00 12:45:00 SHIRA chavez o f [facility] 2020-11-23 2020-11-23 Routine [facility] 1.2.453.417 [id number] Univers 13:48:33 14:17:09 Shira Palencia [employer] 350.1.13.10 ity of Visit REGIONAL 4.2.7.2.686 Yuval as MATERNAL [id number] Med ical & CHILD 107 [facility] 2020-11-23 2020-11-23 Outpatient R JERRI [facility] [id number] Univers 13:15:00 13:15:00 SHIRA ity o f [facility] 2020-11-19 2020-11-19 Abstract Jerri [facility] 1.2.840.114 [id number] Univers 00:00:00 00:00:00 Shira Palencia [employer] 350.1.13.10 ity of REGIONAL 4.2.7.2.686 Yuval as MATERNAL [id number] [facility] ical & CHILD [address] [place] [address] 2020-11-18 2020-11-18 Radar Engineer [facility] 1.2 .840.114 [id number] Univers 14:34:14 15:04:14 Visit Annmarie Carter [employer] 350.1.13.10 ity of [place] REGIONAL 4.2.7.2.686 [place] Candy Law [place] MATERNAL [id number] Medical & CHILD [address] [facility] 2020-11-18 2020-11-18 Outpatient P GLEN ROMAN [facility] [id number] Univers 14:30:00 14:30:00 GLEN ROMAN ity of [facility] 2020-11-16 2020-11-16 Routine Faculty, Vineet Prescottabhi [facility] 1.2 .840.114 [id number] Univers 10:12:33 11:11:04 Shira Guthrie [employer] 350.1.13 .10 ity of Visit Junior Marquez REGIONAL 4.2.7.2.686 [place] MATERNAL [id number] [facility] & CHILD [address] [place] [address] 2020-11-16 2020-11-16 Outpatient R [facility] [id number] Univers 10:00:00 10:00:00 ity of [facility] 2020-11-12 2020-11-12 Routine Jerri [facility] 1.2.204.518 [id number] Univers 10:40:57 11:29:22 Shira C [employer] 350.1.13.10 ity of Visit REGIONAL 4.2.7.2.686 Yuval as MATERNAL [id number] [facility] & CHILD [address] [place] [address] 2020-11-12 2020-11-12 Outpatient R JERRI [facility] [id number] Univers 10:30:00 10:30:00 SHIRA villa [facility] 2020-11-03 2020-11-03 Outpatient P EMMA [facility] [id number] Univers 09:00:00 09:00:00 [facility] 2020-11-02 2020-11-02 Outpatient R MIKE [facility] [id number] Univers 16:00:00 16:00:00 JAIR [facility] 2020-11-02 2020-11-02 Telephone [facility] 1.2.840.114 [id number] Univers 00:00:00 00:00:00 Shira C [employer] 350.1.13.10 ity of REGIONAL 4.2.7.2.686 Yuval as MATERNAL [id number] [facility] & CHILD [address] [place] [address] 2020-10-29 2020-10-29 Routine Risk, Ldt-Tavig-Sz/High [facility] 1. 2.840.114 [id number] Univers 08:48:12 09:47:22 Jerri Shira C [employer] 350.1.13 .10 ity of Visit REGIONAL 4.2.7.2.686 Yuval as MATERNAL [id number] [facility] & CHILD [address] [place] [address] 2020-10-29 2020-10-29 Outpatient R [facility] [id number] Univers 09:00:00 09:00:00 [facility] 2020-10-12 2020-10-12 Outpatient R JERRI [facility] [id number] Univers 08:45:00 08:45:00 SHIRA villa [facility] 2020-09-29 2020-09-29 Outpatient P EMMA [facility] [id number] Univers 09:00:00 09:00:00 ANNMARIE [facility] 2020-09-28 2020-09-28 Outpatient R [facility] [id number] Univers 14:00:00 14:00:00 [facility] 2020-09-23 2020-09-23 Radar Engineer Lab, Vineet-Rmchp [facility] 1.2.840. 114 [id number] Univers 07:35:01 07:53:50 Visit Shira Guthrie [employer] 350.1.13. 10 [facility] 4.2.7.2.686 Yuval as MATERNAL [id number] Med ical & CHILD [address] [place] [address] 2020-09-23 2020-09-23 Outpatient R AKINSIPE, [facility] [id number] Univers 07:45:00 07:45:00 SHIRA ity o f [facility] 2020-09-16 2020-09-16 Outpatient R [facility] [id number] Univers 07:45:00 07:45:00 [facility] 2020-09-14 2020-09-14 Outpatient R AKINSIPE, [facility] [id number] Univers 11:00:00 11:00:00 SHIRA ity o [facility] 2020-09-01 2020-09-01 Outpatient P [facility] [id number] Univers 10:15:00 10:15:00 [facility] 2020-08-18 2020-08-18 Outpatient R AKINSIPE, [facility] [id number] Univers 11:00:00 11:00:00 SHIRA ity o f [facility] 2020-08-17 2020-08-17 Outpatient R AKINSIPE, [facility] [id number] Univers 13:00:00 13:00:00 SHIRA ity o f [facility] 2020-08-10 2020-08-10 Telemedici Faculty, [facility] 1.2.840.114 [id number] 08:50:13 09:05:13 ne Visit Vineet Martin [employer] 350.1.13.10 [facility] REGIONAL 4.2.7.2.686 MATERNAL [phone] & CHILD [address] [place] [address] 2020-08-10 2020-08-10 Outpatient R [facility] [id number] Univers 08:00:00 08:00:00 ity [facility] 2020-07-31 2020-07-31 Telephone Faculty, [facility] 1.2.840.114 [id number] 00:00:00 00:00:00 Ang Rmchp [employer] 350.1.13.10 [facility] 4.2.7.2.686 MATERNAL [id number] & CHILD [address] [place] [address] 2020-07-30 2020-07-30 [facility] [facility] [id number] Univers 13:00:00 13:00:00 CEFERINO ity [facility] 2020-07-22 2020-07-22 [facility] [id number] Univers 13:30:00 13:30:00 SHIRA ity o f [facility] 2020-07-16 2020-07-16 Outpatient R [facility] [id number] Univers 10:30:00 10:30:00 ity [facility] 2020-07-13 2020-07-13 Outpatient R [facility] [id number] Univers 09:00:00 09:00:00 ity [facility] 2020-07-06 2020-07-06 Outpatient R [facility] [id number] Univers 11:00:00 11:00:00 ity [facility] 2020-07-06 2020-07-06 Outpatient R LYUDMILA BARBOSA [facility] [id number] Univers 08:30:00 08:30:00 ity [facility] 2020-07-02 2020-07-02 Outpatient R LYUDMILA BARBOSA [facility] [id number] Univers 11:00:00 11:00:00 ity [facility] 2020-06-30 2020-06-30 Outpatient R LYUDMILA BARBOSA [facility] [id number] Univers 10:00:00 10:00:00 ity [facility] 2020-06-22 2020-06-22 Outpatient R LYUDMILA BARBOSA [facility] [id number] Univers 08:30:29 23:59:00 ity [facility] 2020-06-22 2020-06-22 Outpatient R LYUDMILA BARBOSA [facility] [id number] Univers 00:00:00 00:00:00 [facility] 2020-06-15 2020-06-15 Radar Engineer Lab, Ang-Rmchp [facility] [id number] Univers 10:30:00 10:45:00 Visit Shira Guthrie [employer] [id number] [facility] [id number] Yuval as MATERNAL [id number] [facility] ical & CHILD [address] [place] [address] 2020-06-15 2020-06-15 Outpatient R JERRI [facility] [id number] Univers 10:30:00 10:30:00 SHIRA chavez o [facility] 2020-06-11 2020-06-11 Outpatient R JERRI [facility] [id number] Univers 10:15:00 10:15:00 SHIRA chavez o [facility] 2020-06-08 2020-06-08 Outpatient R [facility] [id number] Univers 13:00:00 13:00:00 [facility] 2020-06-01 2020-06-01 Outpatient R MARIVEL GRIMALDO [facility] [id number] Univers 14:30:00 14:30:00 MARIVEL GRIMALDO [facility] 2020-05-25 2020-05-25 Outpatient P [facility] [id number] Univers 08:30:00 08:30:00 [facility] 2020-05-11 2020-05-11 Outpatient R [facility] [id number] Univers 13:15:00 13:15:00 [facility] 2020-04-16 2020-04-16 Outpatient R JERRI [facility] [id number] Univers 08:30:00 08:30:00 SHIRA chavez o [facility] 2019-09-13 2019-09-13 Outpatient R RANDELL [facility] [id number] Univers 08:45:00 08:45:00 MARIANNE [facility] Results This patient has no known results.
[2022-03-09 05:21] LABS: Urine Blood Negative (Negative); Urine Glucose Negative (Negative); Urine Protein Negative (Negative); Urine Specific Gravity 1.025 (1.005-1.030); Urine Specific Gravity/Preg 1.025 (1.005-1.030)
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
[2022-03-09] MEDS ORDERED: TRAMADOL HCL 50 MG TAB ONE (09:28)
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
[2022-03-09 10:03] VITALS: TEMP 98.1
[2022-03-09 10:07] VITALS: O2SAT 100
[2022-03-09 10:08] VITALS: BP 109/71
== END 2022-03-09 09:56 | disposition home or self-care (01) ==
LOC: ER 03:43
DX: M54.2 Cervicalgia (principal); R07.89 Other chest pain; V40.5XXA Car driver injured in collision with pedestrian or animal in traffic accident, initial encounter; F17.210 Nicotine dependence, cigarettes, uncomplicated; Z88.0 Allergy status to penicillin; Z91.018 Allergy to other foods
CPT/HCPCS: 71045; 72040; 72125; 81003; 81025; 99284

== ENCOUNTER 2023-07-03 21:28 | Emergency (ER) | payer OTHER, SELFPAY ==
--- OUTSIDE RECORDS SUMMARY | 2023-07-03 21:31 | XMS REPORT | Continuity of Care Document ---
Author Name Unknown Address [address] [facility] [address] [place] [address] [facility] Address [address] [facility] [address] [place] [address] Care Team Providers Care Compounder [employer] Name Role Phone Shira Lindsay Primary Care Physicia n KATARINA LIANG Attending Clinician Unavaila SHIRA Aviles Attending Clinician Unavail able Visit, [facility] Attending Clinician Unava ilShira Jarrett Attending Clinician + Jessica Rand Attending Clinician + [phone] JESSICA GOMEZ Attending Clinician Unavailab [facility] Attending Clinician Unavailable Lyudmila Barbosa MD Attending Clinician [phone] LYUDMILA BARBOSA Attending Clinician Unavailable Clinic, [facility] Neurology Continuity Attending Eric millan Unavailable Doctor Unassigned, [place] Attending Clinician U MARIANNE Deleon Attending Clinician UnavailMarianne Fuchs Attending Clinician [phone] Samara Holliday DO Attending Clinician [phone] Elliot Messer MD Attending Clinician [phone] Yoel Diaz MD Attending Clinician + [phone] Katarina Liang MD Attending Clinician + [phone] Ultrasound, Ang-Mfm Attending Clinician Unavailtorri Carter MD, Annmarie Cedillo Attending Clinician [phone] Glen Roman MD Attending Clinician [phone] Candy Law MD, Rubio Attending Clinician + GLEN ROMAN Attending Clinician Unavailable GLEN ROMAN Attending Clinician Unavailable Faculty, Ang Rmchp Mfm Attending Clinician Unarosio Marquez MD, Junior Taveras Attending Clinician [phone] ANNMARIE CARTER Attending Clinician Unavailable JAIR MCKEON Attending Clinician Unavailable Risk, Knw-Dyyxg-Rd/High Attending Clinician Unav ailable Lab, Ang-Rmchp Attending Clinician Unavailable CEFERINO MOON Attending Clinician UnavailMARIVEL Pastor Attending Clinician Unavailable MARIVEL GRIMALDO Attending Clinician Unavailable Samara Holliday DO Admitting Clinician [phone] Payers Payer Name Policy Type Policy Number Effective Date Expirati on Date Source [employer] MEDICAID [id number] 2020 00:00:00 MEDICAID OF [place] [id number] 2020 00:00:00 MEDICAID PENDING PENDING 2020 00:00:00 Problems Condition Name Condition Details Condition Category Status Onset Date Resolution Date Last Treatment Date Treating Clinician Comments Source Encounter for initial prescripti on of injectable contracept brendon Encounter for initial prescripti on of injectable contracept brendon Disease Active 2020-02 00:00: 00 [facility] History of seizure History of seizure Disease Active 04-16 00:00: 00 Overview: Formattin g of this note might be different from the original. Reports due to anxiety Reports last seizure activity was 12/2019Re ports was on meds for about 1 month but self d/c [facility] History of asthma History of asthma Disease Active 06-27 00:00: 00 [facility] Personal history of allergy to penicillin Personal history of allergy to penicillin Disease Active 06-26 00:00: 00 Overview: Formattin g of this note might be different from the original. Patient reports anaphylax is reaction [facility] Allergies, Adverse Reactions, Alerts Allergy Name Allergy Type Status Severity Reaction(s) Onset Date Inactive Date Treating Clinician Comments Source [facility] [employer] [facility]I Active Anaphylaxis 4-05 00:00: 00 [facility] [place] Propensi ty to adverse reaction s Active Anaphylaxis 405 00:00: 00 [facility] PENICILL IN DRUG INGREDI Active High Anaphylaxis 8-17 00:00: 00 [facility] Penicill in Propensi ty to adverse reaction s Active Anaphylaxis 817 00:00: 00 [facility] Social History Social Habit Start Date Stop Date Quantity Comments Source ASSERTION [facility] of tobacco use Cigarette Smoker [facility] Exposure to SARS-CoV-2 (event) 2021-03-28 00:00:00 2021-04-27 14:15:00 Not sure [facility] History of Social function 2021-04-27 00:00:00 2021-04-27 00:00:00 [facility] Tobacco Comment 2020-06-15 00:00:00 2020-06-15 00:00:00 4-5 cigarrete per day [facility] Cigarettes smoked current (pack per day) - Reported 2019-09-13 00:00:00 2019-09-13 00:00:00 [facility] Cigarette pack-years 2019-09-13 00:00:00 2019-09-13 00:00:00 [facility] Tobacco use and exposure 2019-09-13 00:00:00 2019-09-13 00:00:00 Smokeless tobacco non-user [facility] Alcohol intake 2019-09-13 00:00:00 2019-09-13 00:00:00 1.43 /d [facility] Sex Assigned At 2000 00:00:00 2000 00:00:00 [facility] Smoking Status Start Date Stop Date Source Smokes tobacco daily 2019-09-13 00:00:00 [facility] Medications Ordered Medication Name Filled Medication Name Start Date Stop Date Current Medication? Ordering Clinician Indication Dosage Frequency Signature (SIG) Comments Components Source amitriptyli ne 10 mg tablet 2020-02 00:00: 00 Yes [id number] 10mg Take 1 tablet by mouth at bedtime. [facility] magnesium oxide 400 mg (241.3 mg magnesium) tablet 2020-02 00:00: 00 Yes [id number] 400mg Take 1 tablet by mouth daily. [facility] levETIRAcet am 1,000 mg Tb24 2020-02 00:00: 00 Yes [id number] 2000mg Take 2,000 mg by mouth at bedtime. [facility] foLIC acid 1 mg tablet 2020-02 00:00: 00 Yes [id number] 1mg Take 1 tablet by mouth daily. [facility] medroxyPROG ESTERone (DEPO-PROVE RA) injection 150 mg 2020-02 20:45: 00 12-20 19:44 :00 No [id number] 150mg [facility] levETIRAcet am (KEPPRA) 500 mg tablet 06-16 00:00: 00 12-03 00:00 :00 No [id number] 1000mg Take 2 tablets by mouth 2 (two) times daily. [facility] magnesium oxide 400 mg magnesium Tab 06-11 00:00: 00 12-06 00:00 :00 No [id number] 400mg Take 400 mg by mouth daily. [facility] foLIC acid 1 mg tablet 06-11 00:00: 00 12-06 00:00 :00 No [id number] 4mg Take 4 tablets by mouth daily. [facility] PNV 67-iron ps-folate no.1-dha (VITAFOL ULTRA) 29 mg iron- 1 mg-200 mg Cap 3- 00:00: 00 12-06 00:00 :00 No [id number] 1{each} Take 1 Each by mouth daily. [facility] Immunizations Ordered Immunization Name Filled Immunization Name Date Status Comments Source TDAP 2020-10-12 00:00:00 Completed [facility] TDAP 2018-04-16 00:00:00 Completed [facility] TDAP (ADACEL) VACCINE 2013-02-20 00:00:00 Completed [facility] TDAP (ADACEL) VACCINE Unknown Completed [facility] TDAP Unknown Completed [facility] TDAP Unknown Completed [facility] TDAP (ADACEL) VACCINE Unknown Completed [facility] TDAP Unknown Completed [facility] TDAP (ADACEL) VACCINE Unknown Completed [facility] TDAP Unknown Completed [facility] TDAP (ADACEL) VACCINE Unknown Completed [facility] TDAP Unknown Completed [facility] Vital Signs Vital Name Observation Time Observation Value Comments S ource Systolic blood pressure 2021-04-27 20:16:00 121 mm[Hg] [facility] Diastolic blood pressure 2021-04-27 20:16:00 81 mm[Hg] [facility] Heart rate 2021-04-27 20:16:00 94 /min [facility] Body temperature 2021-04-27 20:16:00 36.06 Anna [facility] Respiratory rate 2021-04-27 20:16:00 16 /min [facility] Body height 2021-04-27 20:16:00 157.5 cm [facility] Body weight 2021-04-27 20:16:00 56.11 kg [facility] BMI 2021-04-27 20:16:00 22.63 kg/m2 [facility] Encounters Start Date/Time End Date/Time Encounter Type Admission Type Attending Clinicians Care Facility Care Department Encounter ID Source 2020-12-22 07:18:31 Outpatient [facility] [id number] [facility] 2020-12-20 10:38:46 Emergency [facility] [id number] [facility] 2021-07-21 10:30:00 2021-07-21 10:30:00 Outpatient R [facility] [id number] [facility] 2021-05-20 15:00:00 2021-05-20 15:00:00 Outpatient R KATARINA LIANG [facility] [id number] [facility] 2021-04-27 14:45:00 2021-04-27 14:45:00 Outpatient R SHIRA GUTHRIE [facility] [id number] [facility] 2021-04-27 14:45:00 2021-04-27 14:45:00 Nurse Visit Visit, Ang-Rmchp Nurse Shira Guthrie [facility] MANUFA[employer]URING ELECTRICIAN [facility]ILD [facility] [id number] 350.1.13.10 4.2.7.2.686 [id number] [facility] 2021-04-27 00:00:00 2021-04-27 00:00:00 Telephone Shira Guthrie [facility] MANUFACTURING ELECTRICIAN [facility] 1.2840.114 350.1.13.10 4.2.7.2.686 [id number] [facility] 2021-04-12 14:00:00 2021-04-12 14:00:00 Outpatient R [facility] [id number] [facility] 2021-04-12 14:00:00 2021-04-12 14:00:00 Outpatient R [facility] [id number] [facility] 2021-04-12 14:00:00 2021-04-12 14:00:00 Outpatient R SHIRA GUTHRIE [facility] [id number] [facility] 2021-03-11 00:00:00 2021-03-11 00:00:00 Telephone Jessica Gomez [facility] MANUFACTURING ELECTRICIAN [facility] 1.20.114 350.1.13.10 4.2.7.2.686 [id number] [facility] 2021-03-09 14:30:00 2021-03-09 15:29:48 Office Visit Jessica Gomez [facility] [employer]URING ELECTRICIAN [facility]ILD [facility] 1.2.840.114 350.1.13.10 4.2.7.2.686 [id number] [facility] 2021-03-09 14:30:00 2021-03-09 15:29:48 Outpatient JESSICA PERSON [facility] [id number] [facility] 2021-03-09 14:30:00 2021-03-09 14:30:00 Outpatient JESSICA PERSON [facility] [id number] [facility] 2021-02-18 15:45:00 2021-02-18 16:00:00 Guidance Counselor Visit [facility] Familia Lyudmila Alfonso [facility] 1..840.114 350.1.13.10 4.2.7.2.686 [id number] [facility] 2021-02-18 15:45:00 2021-02-18 15:45:00 Outpatient LYUDMILA REYES [facility] [id number] [facility] 2021-02-18 15:00:00 2021-02-18 15:30:00 Office Visit Clinic, [facility] Neurology Continuity Lyudmila Barbosa Naty [facility] 1..840.114 350.1.13.10 4.2.7.2.686 [id number] [facility] 2021-02-18 15:00:00 2021-02-18 15:00:00 Outpatient LYUDMILA REYES [facility] [id number] [facility] 2021-02-18 15:00:00 2021-02-18 15:00:00 Outpatient LYUDMILA REYES [facility] [id number] [facility] 2021-02-11 13:30:00 2021-02-11 13:30:00 Outpatient LYUDMILA REYES [facility] [id number] [facility] 2021-01-29 12:34:30 2021-01-29 23:59:00 Hospital Encounter Lyudmila Barbosa [facility] 1..840.114 350.1.13.10 4.2.7.2.686 [id number] [facility] 2021-01-29 12:33:51 2021-01-29 12:33:51 Outpatient R LYUDMILA BARBOSA [facility] [id number] [facility] 2021-01-29 12:33:51 2021-01-29 12:33:51 Hospital Encounter Lyudmila Barbosa [facility] 1.114 350.1.13.10 4.2.7.2.686 [id number] [facility] 2021-01-29 00:00:00 2021-01-29 00:00:00 Orders Only Doctor Unassigned, [place] [facility] 1..114 350.1.13.10 4.2.7.2.686 [id number] [facility] 2021-01-25 00:00:00 2021-01-25 00:00:00 Outpatient R LYUDMILA BARBOSA [facility] [id number] [facility] 2021-01-18 14:15:00 2021-01-18 14:48:18 Outpatient MARIANNE MARRUFO [facility] [id number] [facility] 2021-01-18 14:08:43 2021-01-18 14:48:18 Office Visit Marianne Valle [facility] MANUFACTURING ELECTRICIAN [facility] 1..114 350.1.13.10 4.2.7.2.686 [id number] [facility] 2021-01-18 14:15:00 2021-01-18 14:15:00 Outpatient MARIANNE MARRUFO [facility] [id number] [facility] 2021-01-08 00:00:00 2021-01-08 00:00:00 Telephone Lyudmila Barbosa [facility] 1.114 350.1.13.10 4.2.7.2.686 [id number] [facility] 2021-01-07 15:00:00 2021-01-07 15:00:00 Outpatient LYUDMILA REYES [facility] [id number] [facility] 2021-01-07 14:28:50 2021-01-07 14:43:50 Guidance Counselor Visit [facility] 1.840.114 350.1.13.10 4.2.7.2.686 [id number] [facility] 2021-01-07 14:00:00 2021-01-07 14:00:00 Outpatient LYUDMILA REYES [facility] [id number] [facility] 2021-01-07 14:00:00 2021-01-07 14:00:00 Outpatient LYUDMILA REYES [facility] [id number] [facility] 2021-01-07 13:26:44 2021-01-07 13:56:44 Office Visit Clinic, [facility] Neurology Continuity [facility] 1.840.114 350.1.13.10 4.2.7.2.686 [id number] [facility] 2020-12-28 14:17:39 2020-12-28 14:49:02 Routine Visit Marianne Valle [facility] MANUFA[employer]URING ELECTRICIAN [facility] 1..840.114 350.1.13.10 4.2.7.2.686 [id number] [facility] 2020-12-28 14:15:00 2020-12-28 14:49:02 Outpatient MARIANNE MARRUFO [facility] [id number] [facility] 2020-12-05 11:13:00 2020-12-06 21:26:00 Hospital Encounter Samara Holliday [facility] 1.840.114 350.1.13.10 4.2.7.2.686 [id number] [facility] 2020-12-05 21:26:57 2020-12-05 21:26:57 Anesthesia Event GuiElliot cedillo [facility] 1.2.840.114 350.1.13.10 4.2.7.2.686 [id number] [facility] 2020-12-05 13:00:00 2020-12-05 21:18:00 Anesthesia Event [facility] 1.20.114 350.1.13.10 4.2.7.2.686 [id number] [facility] 2020-12-03 15:14:50 2020-12-03 15:29:50 Guidance Counselor Visit [facility] Lyudmila Barbosa [facility] 1..114 350.1.13.10 4.2.7.2.686 [id number] [facility] 2020-12-03 13:58:19 2020-12-03 14:28:19 Office Visit Clinic, [facility] Neurology Continuity Katarina Liang [facility] 1..114 350.1.13.10 4.2.7.2.686 [id number] [facility] 2020-12-03 14:00:00 2020-12-03 14:00:00 Outpatient R [facility] [id number] [facility] 2020-12-02 00:00:00 2020-12-02 00:00:00 Telephone Marianne Valle MDJENNIFER MANUFACTURING ELECTRICIAN [facility] 1..114 350.1.13.10 4.2.7.2.686 [id number] [facility] 2020-12-02 00:00:00 2020-12-02 00:00:00 Telephone Marianne Valle [facility] MANUFACTURING ELECTRICIAN [facility] & CHILD [facility] 1.2.840.114 350.1.13.10 4.2.7.2.686 [id number] [facility] 2020-12-01 09:00:00 2020-12-01 09:00:00 Outpatient P [facility] [id number] [facility] 2020-11-30 12:52:38 2020-11-30 13:37:58 Routine Visit Shira Guthrie [facility] MANUFACTURING ELECTRICIAN [facility] CHILD [facility] 1.2.840.114 350.1.13.10 4.2.7.2.686 [id number] [facility] 2020-11-30 12:45:00 2020-11-30 12:45:00 Outpatient R SHIRA GUTHRIE [facility] [id number] [facility] 2020-11-23 13:48:33 2020-11-23 14:17:09 Routine Visit Shira Guthrie [facility] MANUFACTURING ELECTRICIAN [facility] CHILD [facility] 1.2.840.114 350.1.13.10 4.2.7.2.686 [id number] [facility] 2020-11-23 13:15:00 2020-11-23 13:15:00 Outpatient R SHIRA GUTHRIE [facility] [id number] [facility] 2020-11-19 00:00:00 2020-11-19 00:00:00 Abstract RachnaRodríguez nunezShira Talha [facility] MANUFACTURING ELECTRICIAN [facility] & CHILD [facility] 1.2.840.114 350.1.13.10 4.2.7.2.686 [id number] [facility] 2020-11-18 14:34:14 2020-11-18 15:04:14 Guidance Counselor Visit Ultrasound, Annmarie Castellano, Joanne Holland [facility] MANUFACTURING ELECTRICIAN [facility] 1..840.114 350.1.13.10 4.2.7.2.686 [id number] [facility] 2020-11-18 14:30:00 2020-11-18 14:30:00 Outpatient P GLEN ROMAN SHANNON [facility] [id number] [facility] 2020-11-18 00:00:00 2020-11-18 00:00:00 Patient Secure Msg Shira Guthrie [facility] MANUFACTURING ELECTRICIAN [facility] 1..840.114 350.1.13.10 4.2.7.2.686 [id number] [facility] 2020-11-16 10:12:33 2020-11-16 11:11:04 Routine Visit Faculty, Vineet Martin Shira Aiken Antonio F [facility] MANUFACTURING ELECTRICIAN [facility] 1..840.114 350.1.13.10 4.2.7.2.686 [id number] [facility] 2020-11-16 10:00:00 2020-11-16 10:00:00 Outpatient R [facility] [id number] [facility] 2020-11-12 10:40:57 2020-11-12 11:29:22 Routine Visit Shira Guthrie [facility] MANUFACTURING ELECTRICIAN [facility] 1..840.114 350.1.13.10 4.2.7.2.686 [id number] [facility] 2020-11-12 10:30:00 2020-11-12 10:30:00 Outpatient R SHIRA GUTHRIE [facility] [id number] [facility] 2020-11-03 09:00:00 2020-11-03 09:00:00 Outpatient P ANNMARIE CARTER [facility] [id number] [facility] 2020-11-02 16:00:00 2020-11-02 16:00:00 Outpatient R JAIR MCKEON [facility] [id number] [facility] 2020-11-02 00:00:00 2020-11-02 00:00:00 Telephone Shira Guthrie [facility] MANUFACTURING ELECTRICIAN [facility] ..840.114 350.1.13.10 4.2.7.2.686 [id number] [facility] 2020-10-29 08:48:12 2020-10-29 09:47:22 Routine Visit Risk, Julianne-N p/High Shira Guthrie [facility] .840.114 350.1.13.10 4.2.7.2.686 [id number] [facility] 2020-10-29 09:00:00 2020-10-29 09:00:00 Outpatient R [facility] [id number] [facility] 2020-10-12 08:45:00 2020-10-12 08:45:00 Outpatient R SHIRA GUTHRIE [facility] [id number] [facility] 2020-09-29 09:00:00 2020-09-29 09:00:00 Outpatient P ANNMARIE CARTER [facility] [id number] [facility] 2020-09-28 14:00:00 2020-09-28 14:00:00 Outpatient R [facility] [id number] [facility] 2020-09-23 07:35:01 2020-09-23 07:53:50 Guidance Counselor Visit Lab, Shira Alonzo [facility] .840.114 350.1.13.10 4.2.7.2.686 [id number] [facility] 2020-09-23 07:45:00 2020-09-23 07:45:00 Outpatient R SHIRA GUTHRIE [facility] [id number] [facility] 2020-09-16 07:45:00 2020-09-16 07:45:00 Outpatient R [facility] [id number] [facility] 2020-09-14 11:00:00 2020-09-14 11:00:00 Outpatient R SHIRA GUTHRIE [facility] [id number] [facility] 2020-09-01 10:15:00 2020-09-01 10:15:00 Outpatient P [facility] [id number] [facility] 2020-08-18 11:00:00 2020-08-18 11:00:00 Outpatient R SHIRA GUTHRIE [facility] [id number] [facility] 2020-08-17 13:00:00 2020-08-17 13:00:00 Outpatient R SHIRA GUTHRIE [facility] [id number] [facility] 2020-08-10 08:50:13 2020-08-10 09:05:13 Telemedici ne Visit Faculty, Vineet [facility] MANUFACTURING ELECTRICIAN [facility] .840.114 350.1.13.10 4.2.7.2.686 [id number] 2020-08-10 08:00:00 2020-08-10 08:00:00 Outpatient R [facility] [id number] [facility] 2020-07-31 00:00:00 2020-07-31 00:00:00 Telephone Faculty, Vineet [facility] MANUFACTURING ELECTRICIAN [facility] .840.114 350.1.13.10 4.2.7.2.686 [id number] 2020-07-30 13:00:00 2020-07-30 13:00:00 Outpatient R CEFERINO MOON [facility] [id number] [facility] 2020-07-22 13:30:00 2020-07-22 13:30:00 Outpatient SHIRA KIRAN [facility] [id number] [facility] 2020-07-16 10:30:00 2020-07-16 10:30:00 Outpatient R [facility] [id number] [facility] 2020-07-13 09:00:00 2020-07-13 09:00:00 Outpatient R [facility] [id number] [facility] 2020-07-06 11:00:00 2020-07-06 11:00:00 Outpatient R [facility] [id number] [facility] 2020-07-06 08:30:00 2020-07-06 08:30:00 Outpatient LYUDMILA REYES [facility] [id number] [facility] 2020-07-02 11:00:00 2020-07-02 11:00:00 Outpatient LYUDMILA REYES [facility] [id number] [facility] 2020-06-30 10:00:00 2020-06-30 10:00:00 Outpatient LYUDMILA REYES [facility] [id number] [facility] 2020-06-22 08:30:29 2020-06-22 23:59:00 Outpatient LYUDMILA REYES [facility] [id number] [facility] 2020-06-22 00:00:00 2020-06-22 00:00:00 Outpatient LYUDMILA REYES [facility] [id number] [facility] 2020-06-15 10:30:00 2020-06-15 10:45:00 Guidance Counselor Visit Lab, Ang-Rmchp Shira Guthrie [facility] MANUFACTURING ELECTRICIAN [facility] 1.2.840.114 350.1.13.10 4.2.7.2.686 [id number] [facility] 2020-06-15 10:30:00 2020-06-15 10:30:00 Outpatient R SHIRA GUTHRIE [facility] [id number] [facility] 2020-06-11 10:15:00 2020-06-11 10:15:00 Outpatient R SHIRA GUTHRIE [facility] [id number] [facility] 2020-06-08 13:00:00 2020-06-08 13:00:00 Outpatient R [facility] [id number] [facility] 2020-06-01 14:30:00 2020-06-01 14:30:00 Outpatient R RE, MARIVEL GRIMALDO, MARIVEL [facility] [id number] [facility] 2020-05-25 08:30:00 2020-05-25 08:30:00 Outpatient P [facility] [id number] [facility] 2020-05-11 13:15:00 2020-05-11 13:15:00 Outpatient R [facility] [id number] [facility] 2020-05-11 00:00:00 2020-05-11 00:00:00 Patient Secure Msg Doctor Unassigned, [place] [facility] ..[id number] [facility] 2020-04-16 08:30:00 2020-04-16 08:30:00 Outpatient R RACHNAPURVISHIRA [facility] [id number] [facility] 2020-02-12 00:00:00 2020-02-12 00:00:00 Patient Secure Msg Doctor Unassigned, [place] MELANIE RASCON 1..[id number] [facility] 2019-09-17 00:00:00 2019-09-17 00:00:00 Patient Secure Msg Doctor Unassigned, [place] [facility] [id number] [facility] 2019-09-13 08:45:00 2019-09-13 08:45:00 Outpatient MARIANNE MARRUFO [facility] [id number] [facility]
[2023-07-03] MEDS ORDERED: DIPHENHYDRAMINE 50 MG/ML VIAL ONE (22:02)
[2023-07-03] MEDS ORDERED: METOCLOPRAMIDE 10 MG/2mL INJ ONE (22:02)
[2023-07-03] MEDS ORDERED: KETOROLAC 30 MG/ML INJ ONE (22:02)
[2023-07-03] MEDS ORDERED: NA CHLORIDE 0.9% 1,000 ML ONE (22:03)
--- NOTE | 2023-07-03 23:13 | ER ---
Nurse's Notes [facility] Name: Rivka Johnson Age: 22 yrs Sex: Female : 2000 Arrival Date: 07/03/2023 Time: 21:28 Bed 5 Private MD: Diagnosis: Headache;herpes simplex keratitis, right Presentation: 07/02 21:37 Chief complaint: Patient states: Pt c/o headache and right eye pain x 4 days. Pt tl4 started actively vomiting today. Pt has herpes simplex virus in right eye. Coronavirus screen: At this time, the client does not indicate any symptoms associated with coronavirus-19. Ebola Screen: No symptoms or risks identified at this time. Initial Sepsis Screen: Does the patient meet any 2 criteria? No. Patient's initial sepsis screen is negative. Does the patient have a suspected source of infection? No. Patient's initial sepsis screen is negative. Risk Assessment: Do you want to hurt yourself or someone else? Patient reports no desire to harm self or others. Onset of symptoms was June 29, 2023. 21:37 Method Of Arrival: Ambulatory tl4 21:37 Acuity: LEENA 3 tl4 Triage Assessment: 21:41 General: Appears uncomfortable, ill, Behavior is cooperative. Pain: Complains of pain tl4 in face and scalp. EENT: Reports pain in right eye. Neuro: Level of Consciousness is awake, alert, obeys commands, Oriented to person, place, time, situation, Moves all extremities. Full function Gait is steady, Speech is normal, Facial symmetry appears normal. Cardiovascular: Capillary refill < 3 seconds Patient's skin is warm and dry. Respiratory: Airway is patent Respiratory effort is even, unlabored, Respiratory pattern is regular, symmetrical. GI: Pt is actively vomiting clear fluid. : No signs and/or symptoms were reported regarding the genitourinary system. Derm: No signs and/or symptoms reported regarding the dermatologic system. Musculoskeletal: No signs and/or symptoms reported regarding the musculoskeletal system. Historical: - Allergies: 21:40 [place] Concentrate; tl4 21:40 PENICILLINS; tl4 - PMHx: 21:40 Seizures; Migraine; tl4 - PSHx: 21:40 None; tl4 - Immunization history:: Adult Immunizations unknown. - Infectious Disease History:: Denies. - Social history:: Smoking status: Patient reports the use of cigarette tobacco products, smokes one pack cigarettes per day. Screenin:10 [facility] ED Fall Risk Assessment (Adult) History of falling in the last 3 months, jj7 including since admission No falls in past 3 months (0 pts) Confusion or Disorientation No (0 pts) Intoxicated or Sedated No (0 pts) Impaired Gait No (0 pts) Mobility Assist Device Used No (0 pt) Altered Elimination No (0 pt) Score/Fall Risk Level 0 - 2 = Low Risk Oriented to surroundings, Maintained a safe environment, Educated pt \T\ family on fall prevention, incl call for assistance when getting out of bed. Abuse screen: Denies threats or abuse. Nutritional screening: No deficits noted. Tuberculosis screening: No symptoms or risk factors identified. Assessment: 22:10 General: Appears in no apparent distress. comfortable, Behavior is calm, cooperative, jj7 appropriate for age. Pain: Complains of pain in head. Neuro: Reports headache. Vital Signs: 21:37 BP 151 / 92; Pulse 74; Resp 22; Temp 98.3(TE); Pulse Ox 100% ; Weight 56.7 kg; Height 5 tl4 ft. 1 in. ; Pain 8/10; 22:36 BP 100 / 61; Pulse 66; Resp 16; Pulse Ox 100% ; Pain 0/10; jj7 23:23 BP 93 / 48; Pulse 61; Resp 17; Temp 98.3; Pulse Ox 98% ; jj7 21:37 Body Mass Index 23.62 (56.70 kg, 154.94 cm) tl4 21:37 Pain Scale: Adult tl4 22:36 Pain Scale: Adult jj7 ED Course: 21:31 Patient arrived in ED. ra3 21:32 Laura Herrera PA-C is PHCP. sb4 21:32 Thony Gamez MD is Attending Physician. sb4 21:40 Triage completed. tl4 21:42 Arm band placed on left wrist. tl4 22:10 Patient has correct armband on for positive identification. Bed in low position. Call jj7 light in reach. Side rails up X 1. Adult w/ patient. Provided Education on: USE OF CALL LAGOS. Client placed on continuous cardiac and pulse oximetry monitoring. NIBP monitoring applied. Warm blanket given. 22:10 No provider procedures requiring assistance completed. jj7 22:16 Inserted saline lock: 20 gauge in right forearm, using aseptic technique. Missed ty attempt(s): 22 gauge in right wrist. Bleeding controlled, band aid applied, catheter tip intact. 23:24 IV discontinued, intact, bleeding controlled, No redness/swelling at site. Pressure jj7 dressing applied. Administered Medications: 22:15 Drug: diphenhydrAMINE IVP 25 mg IVP once Route: IVP; Site: right forearm; jj7 22:38 Follow up: Response: Marked relief of symptoms jj7 22:16 Drug: NS 0.9% IV 1000 ml IV at 1 bolus Per protocol; 1000 mL bolus Route: IV; Rate: 1 jj7 bolus; Site: right forearm; 23:25 Follow up: IV Status: Completed infusion jj7 22:16 Drug: Ketorolac IVP 15 mg IVP once Route: IVP; Site: right forearm; jj7 22:38 Follow up: Response: Marked relief of symptoms; Pain is decreased jj7 22:16 Drug: metoCLOPramide IVP 10 mg IVP once; over 1 to 2 minutes Route: IVP; Site: right [facility] forearm; 22:38 Follow up: Response: Marked relief of symptoms jj7 Medication: 22:10 VIS not applicable for this client. jj7 Outcome: 23:12 Discharge ordered by MD. irizarry 23:24 Discharged to home ambulatory, with significant other, jj7 23:24 Condition: improved 23:24 Discharge instructions given to patient, Instructed on discharge instructions, follow up and referral plans. medication usage, Demonstrated understanding of instructions, follow-up care, medications, Prescriptions given X 1, 23:29 Patient left the ED. jj7 Signatures: Rashida Dowling RN RN jj7 Laura Herrera, PA-C PA-C [email or web address] Gaurav Alvarado RN RN [email or web address] Elissa Torres ra3 Tay Nuñez
--- NOTE | 2023-07-03 23:13 | EDPHYS ---
Physician Documentation [facility] Name: Rivka Johnson Age: 22 yrs Sex: Female : 2000 Arrival Date: 07/03/2023 Time: 21:28 Bed 5 Private MD: ED Physician Thony Gamez HPI: 07/02 21:54 This 22 yrs old Female presents to ER via Ambulatory with complaints of sb4 Headache. 21:54 The patient complains of pain to the right eye. sb4 21:54 patient is currently dealing with an episode of herpes simplex keratitis of her right sb4 eye, is being treated for it. started experiencing a migraine today. is not sure if it is secondary to the eye infection or not. has been vomiting as a result of the migraine. reports photosensitivity as well. has taken ibuprofen without significant relief. does report history of migraines. Historical: - Allergies: 21:40 [place] Concentrate; tl4 21:40 PENICILLINS; tl4 - PMHx: 21:40 Seizures; Migraine; tl4 - PSHx: 21:40 None; tl4 - Immunization history:: Adult Immunizations unknown. - Infectious Disease History:: Denies. - Social history:: Smoking status: Patient reports the use of cigarette tobacco products, smokes one pack cigarettes per day. ROS: 21:54 Constitutional: Negative for fever, chills, and weight loss, sb4 21:54 Eyes: Positive for pain, 21:54 Abdomen/GI: Positive for nausea and vomiting, 21:54 Neuro: Positive for headache, 21:54 All other systems are negative, Exam: 21:54 Head/Face: Normocephalic, atraumatic. ENT: Mucous membranes moist. Cardiovascular: sb4 Regular rate and rhythm with a normal S1 and S2. Respiratory: Lungs have equal breath sounds bilaterally, clear to auscultation and percussion. No rales, rhonchi or wheezes noted. No increased work of breathing, no retractions or nasal flaring. Abdomen/GI: Soft, non-tender, no distension. Skin: Warm, dry with normal turgor. Normal color with no rashes, no lesions, and no evidence of cellulitis. 21:54 Constitutional: The patient appears alert, awake, uncomfortable, 21:54 Eyes: dendritic lesion right eye. Vital Signs: 21:37 BP 151 / 92; Pulse 74; Resp 22; Temp 98.3(TE); Pulse Ox 100% ; Weight 56.7 kg; Height 5 tl4 ft. 1 in. ; Pain 8/10; 22:36 BP 100 / 61; Pulse 66; Resp 16; Pulse Ox 100% ; Pain 0/10; jj7 23:23 BP 93 / 48; Pulse 61; Resp 17; Temp 98.3; Pulse Ox 98% ; jj7 21:37 Body Mass Index 23.62 (56.70 kg, 154.94 cm) tl4 21:37 Pain Scale: Adult tl4 22:36 Pain Scale: Adult jj7 MDM: 21:45 Patient medically screened. sb4 23:11 Data reviewed: vital signs, nurses notes, and as a result, I will discharge patient. sb4 Counseling: I had a detailed discussion with the patient and/or guardian regarding the historical points, exam findings, and any diagnostic results supporting the discharge/admit diagnosis, to return to the emergency department if symptoms worsen or persist or if there are any questions or concerns that arise at home. 07/02 21:51 Order name: IV Start; Complete Time: 22:16 sb4 Administered Medications: 22:15 Drug: diphenhydrAMINE IVP 25 mg IVP once Route: IVP; Site: right forearm; jj7 22:38 Follow up: Response: Marked relief of symptoms jj7 22:16 Drug: NS 0.9% IV 1000 ml IV at 1 bolus Per protocol; 1000 mL bolus Route: IV; Rate: 1 jj7 bolus; Site: right forearm; 23:25 Follow up: IV Status: Completed infusion jj7 22:16 Drug: Ketorolac IVP 15 mg IVP once Route: IVP; Site: right forearm; jj7 22:38 Follow up: Response: Marked relief of symptoms; Pain is decreased jj7 22:16 Drug: metoCLOPramide IVP 10 mg IVP once; over 1 to 2 minutes Route: IVP; Site: right jj7 forearm; 22:38 Follow up: Response: Marked relief of symptoms jj7 Disposition: 07/03 03:37 Co-signature as Attending Physician, Thony Gamez MD I agree with the assessment sp4 and plan of care. I reviewed the patient's care provided by the Advanced Practice Provider and agree with the diagnosis and treatment plan. Disposition Summary: 07/03/23 23:12 Discharge Ordered Notes: Location: Home sb4 Problem: new sb4 Symptoms: have improved sb4 Condition: Stable sb4 Diagnosis - Headache sb4 - herpes simplex keratitis, right sb4 Followup: sb4 - With: Emergency Department - When: As needed - Reason: Trouble breathing, Worsening of condition Discharge Instructions: - Discharge Summary Sheet sb4 - Herpes Keratitis sb4 - Migraine Headache, [id number] sb4 Forms: - Patient Portal Instructions sb4 - Leadership Thank You Letter sb4 Prescriptions: - Acyclovir 400 mg Oral tablet - take 1 tablet ORAL route 5 times per day; 50 tablet; Refills: 0, Product sb4 Selection Permitted Signatures: Rashida Dowling RN RN jj7 Laura Herrera PA-C PA-C sb4 Thony Gamez MD MD sp4 Gaurav Alvarado RN RN tl4
[2023-07-03 23:37] VITALS: BP 93/48; TEMP 98.3; O2SAT 98
== END 2023-07-03 23:29 | disposition home or self-care (01) ==
LOC: ER 21:28
DX: R51.9 Headache, unspecified (principal); B00.52 Herpesviral keratitis
CPT/HCPCS: 96361; 96374; 96375; 99284; J1200; J2765; J7030

== ENCOUNTER 2023-09-27 09:46 | Emergency (ER) | payer SELFPAY ==
--- OUTSIDE RECORDS SUMMARY | 2023-09-27 09:49 | XMS REPORT | Continuity of Care Document ---
Author Name Unknown Address [address] [facility] [place] [address] [facility] Address [address] [facility] [address] [place] [address] Care Team Providers Care Revenue Stamp Clerk Name Role Phone Shira Lindsay Primary Care Physicia n KATARINA LIANG Attending Clinician Unavaila SHIRA Aviles Attending Clinician Unavail able [facility]ending Clinician Unava ilShira Jarrett Attending Clinician + Jessica Rand Attending Clinician + [phone] JESSICA GOMEZ Attending Clinician Unavailab le [facility] Attending Clinician Unavailable Lyudmila Barbosa MD Attending Clinician [phone] LYUDMIAL BARBOSA Attending Clinician Unavailable Clinic, [facility] Neurology Continuity Attending Eric millan Unavailable Doctor Unassigned, Boaz Attending Clinician U MARIANNE Deleon Attending Clinician UnavailMarianne Fuchs Attending Clinician [phone] Samara Holliday DO Attending Clinician [phone] Elliot Messer MD Attending Clinician [phone] Yoel Daiz MD Attending Clinician + [phone] Katarina Liang MD Attending Clinician + [phone] Ultrasound, Ang-Mfm Attending Clinician Unavailtorri Carter MD, Annmarie Cedillo Attending Clinician [phone] Glen Roman MD Attending Clinician [phone] Candy Law MD, Rubio Attending Clinician + GLEN ROMAN Attending Clinician Unavailable GLEN ROMAN Attending Clinician Unavailable Faculty, Ang Rmchp Mfm Attending Clinician Unarosio Marquez MD, Junior Taveras Attending Clinician [phone] ANNMARIE CARTER Attending Clinician Unavailable JAIR MCKEON Attending Clinician Unavailable Risk, Vaf-Eywpf-Kk/High Attending Clinician Unav ailable Lab, Ang-Rmchp Attending Clinician Unavailable CEFERINO MOON Attending Clinician UnavailMARIVEL Pastor Attending Clinician Unavailable MARIVEL GRIMALDO Attending Clinician Unavailable Samara Holliday DO Admitting Clinician [phone] Payers Payer Name Policy Type Policy Number Effective Date Expirati on Date Source [employer] MEDICAID [id number] 2020 00:00:00 [place]ICA[place] [id number] 2020 00:00:00 MEDICAID PENDING PENDING 2020 00:00:00 Problems Condition Name Condition Details Condition Category Status Onset Date Resolution Date Last Treatment Date Treating Clinician Comments Source Encounter for initial prescripti on of injectable contracept brendon Encounter for initial prescripti on of injectable contracept brendon Disease Active 2020-02 00:00: 00 [facility] History of seizure History of seizure Disease Active 04-16 00:00: 00 Overview: Formattin g of this note might be different from the original. Reports due to anxiety Reports last seizure activity was 12/2019Re ports was on meds for about 1 month but self d/c [facility] History of asthma History of asthma Disease Active 06-27 00:00: 00 [facility] Personal history of allergy to penicillin Personal history of allergy to penicillin Disease Active 06-26 00:00: 00 Overview: Formattin g of this note might be different from the original. Patient reports anaphylax is reaction [facility] Allergies, Adverse Reactions, Alerts Allergy Name Allergy Type Status Severity Reaction(s) Onset Date Inactive Date Treating Clinician Comments Source [facility] [employer] [facility]I Active Anaphylaxis 4-05 00:00: 00 [facility] [place] Propensi ty to adverse reaction s Active Anaphylaxis 405 00:00: 00 [facility] PENICILL IN DRUG INGREDI Active High Anaphylaxis 8-17 00:00: 00 [facility] Penicill in Propensi ty to adverse reaction s Active Anaphylaxis 817 00:00: 00 [facility] Social History Social Habit Start Date Stop Date Quantity Comments Source ASSERTION [facility] of tobacco use Cigarette Smoker [facility] Exposure to SARS-CoV-2 (event) 2021-03-28 00:00:00 2021-04-27 14:15:00 Not sure [facility] History of Social function 2021-04-27 00:00:00 2021-04-27 00:00:00 [facility] Tobacco Comment 2020-06-15 00:00:00 2020-06-15 00:00:00 4-5 cigarrete per day [facility] Cigarettes smoked current (pack per day) - Reported 2019-09-13 00:00:00 2019-09-13 00:00:00 [facility] Cigarette pack-years 2019-09-13 00:00:00 2019-09-13 00:00:00 [facility] Tobacco use and exposure 2019-09-13 00:00:00 2019-09-13 00:00:00 Smokeless tobacco non-user [facility] Alcohol intake 2019-09-13 00:00:00 2019-09-13 00:00:00 1.43 /d [facility] Sex Assigned At 2000 00:00:00 2000 00:00:00 [facility] Smoking Status Start Date Stop Date Source Smokes tobacco daily 2019-09-13 00:00:00 [facility] Medications Ordered Medication Name Filled Medication Name Start Date Stop Date Current Medication? Ordering Clinician Indication Dosage Frequency Signature (SIG) Comments Components Source amitriptyli ne 10 mg tablet 2020-02 00:00: 00 Yes [id number] 10mg Take 1 tablet by mouth at bedtime. [facility] magnesium oxide 400 mg (241.3 mg magnesium) tablet 2020-02 00:00: 00 Yes [id number] 400mg Take 1 tablet by mouth daily. [facility] levETIRAcet am 1,000 mg Tb24 2020-02 00:00: 00 Yes [id number] 2000mg Take 2,000 mg by mouth at bedtime. [facility] foLIC acid 1 mg tablet 2020-02 00:00: 00 Yes [id number] 1mg Take 1 tablet by mouth daily. [facility] medroxyPROG ESTERone (DEPO-PROVE RA) injection 150 mg 2020-02 20:45: 00 12-20 19:44 :00 No [id number] 150mg [facility] levETIRAcet am (KEPPRA) 500 mg tablet 06-16 00:00: 00 12-03 00:00 :00 No [id number] 1000mg Take 2 tablets by mouth 2 (two) times daily. [facility] magnesium oxide 400 mg magnesium Tab 06-11 00:00: 00 12-06 00:00 :00 No [id number] 400mg Take 400 mg by mouth daily. [facility] foLIC acid 1 mg tablet 06-11 00:00: 00 12-06 00:00 :00 No [id number] 4mg Take 4 tablets by mouth daily. [facility] PNV 67-iron ps-folate no.1-dha (VITAFOL ULTRA) 29 mg iron- 1 mg-200 mg Cap 3- 00:00: 00 12-06 00:00 :00 No [id number] 1{each} Take 1 Each by mouth daily. [facility] Immunizations Ordered Immunization Name Filled Immunization Name Date Status Comments Source TDAP 2020-10-12 00:00:00 Completed [facility] TDAP 2018-04-16 00:00:00 Completed [facility] TDAP (ADACEL) VACCINE 2013-02-20 00:00:00 Completed [facility] TDAP (ADACEL) VACCINE Unknown Completed [facility] TDAP Unknown Completed [facility] TDAP Unknown Completed [facility] TDAP (ADACEL) VACCINE Unknown Completed [facility] TDAP Unknown Completed [facility] TDAP (ADACEL) VACCINE Unknown Completed [facility] TDAP Unknown Completed [facility] TDAP (ADACEL) VACCINE Unknown Completed [facility] TDAP Unknown Completed [facility] Vital Signs Vital Name Observation Time Observation Value Comments S ource Systolic blood pressure 2021-04-27 20:16:00 121 mm[Hg] [facility] Diastolic blood pressure 2021-04-27 20:16:00 81 mm[Hg] [facility] Heart rate 2021-04-27 20:16:00 94 /min [facility] Body temperature 2021-04-27 20:16:00 36.06 Anna [facility] Respiratory rate 2021-04-27 20:16:00 16 /min [facility] Body height 2021-04-27 20:16:00 157.5 cm [facility] Body weight 2021-04-27 20:16:00 56.11 kg [facility] BMI 2021-04-27 20:16:00 22.63 kg/m2 [facility] Encounters Start Date/Time End Date/Time Encounter Type Admission Type Attending Clinicians Care Facility Care Department Encounter ID Source 2020-12-22 07:18:31 Outpatient [facility] [id number] [facility] 2020-12-20 10:38:46 Emergency [facility] [id number] [facility] 2021-07-21 10:30:00 2021-07-21 10:30:00 Outpatient R [facility] [id number] [facility] 2021-05-20 15:00:00 2021-05-20 15:00:00 Outpatient R KATARINA LIANG [facility] [id number] [facility] 2021-04-27 14:45:00 2021-04-27 14:45:00 Outpatient R SHIRA GUTHRIE [facility] [id number] [facility] 2021-04-27 14:45:00 2021-04-27 14:45:00 Nurse Visit Visit, Ang-Rmchp Nurse Shira Guthrie [facility]ARD [facility] & CHILD [facility] 1.2.840.114 350.1.13.10 4.2.7.2.686 [id number] [facility] 2021-04-27 00:00:00 2021-04-27 00:00:00 Telephone Shira Guthrie [facility]ARD [facility] 1.2840.114 350.1.13.10 4.2.7.2.686 [id number] [facility] 2021-04-12 14:00:00 2021-04-12 14:00:00 Outpatient R [facility] [id number] [facility] 2021-04-12 14:00:00 2021-04-12 14:00:00 Outpatient R [facility] [id number] [facility] 2021-04-12 14:00:00 2021-04-12 14:00:00 Outpatient R SHIRA GUTHRIE [facility] [id number] [facility] 2021-03-11 00:00:00 2021-03-11 00:00:00 Telephone Jessica Gomez [facility] BOARD [facility]ILLER [facility] CHILD [facility] 1.20.114 350.1.13.10 4.2.7.2.686 [id number] [facility] 2021-03-09 14:30:00 2021-03-09 15:29:48 Office Visit Jessica Gomez [facility] & CHILD [facility] 1.2.840.114 350.1.13.10 4.2.7.2.686 [id number] [facility] 2021-03-09 14:30:00 2021-03-09 15:29:48 Outpatient JESSICA PERSON [facility] [id number] [facility] 2021-03-09 14:30:00 2021-03-09 14:30:00 Outpatient JESSICA PERSON [facility] [id number] [facility] 2021-02-18 15:45:00 2021-02-18 16:00:00 Ultrasound Specialist Visit [facility] Familia Lyudmila Alfonso [facility] 1..840.114 350.1.13.10 4.2.7.2.686 [id number] [facility] 2021-02-18 15:45:00 2021-02-18 15:45:00 Outpatient LYUDMILA REYES [facility] [id number] [facility] 2021-02-18 15:00:00 2021-02-18 15:30:00 Office Visit Clinic, [facility] Neurology Continuity Lyudmila Barbosa Naty [facility] 1..840.114 350.1.13.10 4.2.7.2.686 [id number] [facility] 2021-02-18 15:00:00 2021-02-18 15:00:00 Outpatient LYUDMILA REYES [facility] [id number] [facility] 2021-02-18 15:00:00 2021-02-18 15:00:00 Outpatient LYUDMILA REYES [facility] [id number] [facility] 2021-02-11 13:30:00 2021-02-11 13:30:00 Outpatient LYUDMILA REYES [facility] [id number] [facility] 2021-01-29 12:34:30 2021-01-29 23:59:00 Hospital Encounter Lyudmila Barbosa [facility] 1..840.114 350.1.13.10 4.2.7.2.686 [id number] [facility] 2021-01-29 12:33:51 2021-01-29 12:33:51 Outpatient R LYUDMILA BARBOSA [facility] [id number] [facility] 2021-01-29 12:33:51 2021-01-29 12:33:51 Hospital Encounter Lyudmila Barbosa [facility] 1.114 350.1.13.10 4.2.7.2.686 [id number] [facility] 2021-01-29 00:00:00 2021-01-29 00:00:00 Orders Only Doctor Unassigned, Boaz [facility] 1..114 350.1.13.10 4.2.7.2.686 [id number] [facility] 2021-01-25 00:00:00 2021-01-25 00:00:00 Outpatient R LYUDMILA BARBOSA [facility] [id number] [facility] 2021-01-18 14:15:00 2021-01-18 14:48:18 Outpatient MARIANNE MARRUFO [facility] [id number] [facility] 2021-01-18 14:08:43 2021-01-18 14:48:18 Office Visit Marianne Valle [facility] 1..114 350.1.13.10 4.2.7.2.686 [id number] [facility] 2021-01-18 14:15:00 2021-01-18 14:15:00 Outpatient MARIANNE MARRUFO [facility] [id number] [facility] 2021-01-08 00:00:00 2021-01-08 00:00:00 Telephone Lyudmila Barbosa [facility] 1.114 350.1.13.10 4.2.7.2.686 [id number] [facility] 2021-01-07 15:00:00 2021-01-07 15:00:00 Outpatient LYUDMILA REYES [facility] [id number] [facility] 2021-01-07 14:28:50 2021-01-07 14:43:50 Ultrasound Specialist Visit [facility] 1.840.114 350.1.13.10 4.2.7.2.686 [id number] [facility] 2021-01-07 14:00:00 2021-01-07 14:00:00 Outpatient LYUDMILA REYES [facility] [id number] [facility] 2021-01-07 14:00:00 2021-01-07 14:00:00 Outpatient LYUDMILA REYES [facility] [id number] [facility] 2021-01-07 13:26:44 2021-01-07 13:56:44 Office Visit Clinic, [facility] 1.840.114 350.1.13.10 4.2.7.2.686 [id number] [facility] 2020-12-28 14:17:39 2020-12-28 14:49:02 Routine Visit Marianne Valle [facility] 1..840.114 350.1.13.10 4.2.7.2.686 [id number] [facility] 2020-12-28 14:15:00 2020-12-28 14:49:02 Outpatient MARIANNE MARRUFO [facility] [id number] [facility] 2020-12-05 11:13:00 2020-12-06 21:26:00 Hospital Encounter Samara Holliday [facility] 1.840.114 350.1.13.10 4.2.7.2.686 [id number] [facility] 2020-12-05 21:26:57 2020-12-05 21:26:57 Anesthesia Event GuiElliot cedillo [facility] 1.2.840.114 350.1.13.10 4.2.7.2.686 [id number] [facility] 2020-12-05 13:00:00 2020-12-05 21:18:00 [facility].20.114 350.1.13.10 4.2.7.2.686 [id number] [facility] 2020-12-03 15:14:50 2020-12-03 15:29:50 Ultrasound Specialist Visit [facility] Lyudmila Barbosa [facility] 1..114 350.1.13.10 4.2.7.2.686 [id number] [facility] 2020-12-03 13:58:19 2020-12-03 14:28:19 Office Visit Clinic, [facility] Neurology Continuity Katarina Liang [facility] 1..114 350.1.13.10 4.2.7.2.686 [id number] [facility] 2020-12-03 14:00:00 2020-12-03 14:00:00 Outpatient R [facility] [id number] [facility] 2020-12-02 00:00:00 2020-12-02 00:00:00 Telephone Marianne Valle NCJENNIFER [facility] 1..114 350.1.13.10 4.2.7.2.686 [id number] [facility] 2020-12-02 00:00:00 2020-12-02 00:00:00 Telephone Marianne Valle [facility] MATERNAL & CHILD [facility] 1.2.840.114 350.1.13.10 4.2.7.2.686 [id number] [facility] 2020-12-01 09:00:00 2020-12-01 09:00:00 Outpatient P [facility] [id number] [facility] 2020-11-30 12:52:38 2020-11-30 13:37:58 Routine Visit Shira Guthrie [facility] MATERNAL & CHILD [facility] 1.2.840.114 350.1.13.10 4.2.7.2.686 [id number] [facility] 2020-11-30 12:45:00 2020-11-30 12:45:00 Outpatient R SHIRA GUTHRIE [facility] [id number] [facility] 2020-11-23 13:48:33 2020-11-23 14:17:09 Routine Visit Shira Guthrie [facility] MATERNAL & CHILD [facility] 1.2.840.114 350.1.13.10 4.2.7.2.686 [id number] [facility] 2020-11-23 13:15:00 2020-11-23 13:15:00 Outpatient R SHIRA GUTHRIE [facility] [id number] [facility] 2020-11-19 00:00:00 2020-11-19 00:00:00 Abstract RachnaRodríguez nunezShira Talha [facility] MATERNAL & CHILD [facility] 1.2.840.114 350.1.13.10 4.2.7.2.686 [id number] [facility] 2020-11-18 14:34:14 2020-11-18 15:04:14 Ultrasound Specialist Visit Ultrasound, Annmarie Castellano, Joanne Holland [facility] CHILD [facility] 1..840.114 350.1.13.10 4.2.7.2.686 [id number] [facility] 2020-11-18 14:30:00 2020-11-18 14:30:00 Outpatient P GLEN ROMAN SHANNON [facility] [id number] [facility] 2020-11-18 00:00:00 2020-11-18 00:00:00 Patient Secure Msg Shira Guthrie [facility] BOARD FILLER [facility] & CHILD [facility] 1..840.114 350.1.13.10 4.2.7.2.686 [id number] [facility] 2020-11-16 10:12:33 2020-11-16 11:11:04 Routine Visit Faculty, Vineet Martin Shira Aiken Antonio F [facility] BO[facility]ER [facility] & CHILD [facility] 1..840.114 350.1.13.10 4.2.7.2.686 [id number] [facility] 2020-11-16 10:00:00 2020-11-16 10:00:00 Outpatient R [facility] [id number] [facility] 2020-11-12 10:40:57 2020-11-12 11:29:22 Routine Visit Shira Guthrie [facility] BO[facility]ER [facility] CHILD [facility] 1..840.114 350.1.13.10 4.2.7.2.686 [id number] [facility] 2020-11-12 10:30:00 2020-11-12 10:30:00 Outpatient R SHIRA GUTHRIE [facility] [id number] [facility] 2020-11-03 09:00:00 2020-11-03 09:00:00 Outpatient P ANNMARIE CARTER [facility] [id number] [facility] 2020-11-02 16:00:00 2020-11-02 16:00:00 Outpatient R JAIR MCKEON [facility] [id number] [facility] 2020-11-02 00:00:00 2020-11-02 00:00:00 Telephone Shira Guthrie [facility] BO[facility]ER [facility] CHILD [facility] ..840.114 350.1.13.10 4.2.7.2.686 [id number] [facility] 2020-10-29 08:48:12 2020-10-29 09:47:22 Routine Visit Risk, Julianne-N p/High Shira Guthrie [facility] .840.114 350.1.13.10 4.2.7.2.686 [id number] [facility] 2020-10-29 09:00:00 2020-10-29 09:00:00 Outpatient R [facility] [id number] [facility] 2020-10-12 08:45:00 2020-10-12 08:45:00 Outpatient R SHIRA GUTHRIE [facility] [id number] [facility] 2020-09-29 09:00:00 2020-09-29 09:00:00 Outpatient P ANNMARIE CARTER [facility] [id number] [facility] 2020-09-28 14:00:00 2020-09-28 14:00:00 Outpatient R [facility] [id number] [facility] 2020-09-23 07:35:01 2020-09-23 07:53:50 Ultrasound Specialist Visit Lab, Shira Alonzo [facility] .840.114 350.1.13.10 4.2.7.2.686 [id number] [facility] 2020-09-23 07:45:00 2020-09-23 07:45:00 Outpatient R SHIRA GUTHRIE [facility] [id number] [facility] 2020-09-16 07:45:00 2020-09-16 07:45:00 Outpatient R [facility] [id number] [facility] 2020-09-14 11:00:00 2020-09-14 11:00:00 Outpatient R SHIRA GUTHRIE [facility] [id number] [facility] 2020-09-01 10:15:00 2020-09-01 10:15:00 Outpatient P [facility] [id number] [facility] 2020-08-18 11:00:00 2020-08-18 11:00:00 Outpatient R SHRIA GUTHRIE [facility] [id number] [facility] 2020-08-17 13:00:00 2020-08-17 13:00:00 Outpatient R SHIRA GUTHRIE [facility] [id number] [facility] 2020-08-10 08:50:13 2020-08-10 09:05:13 Telemedici ne Visit Faculty, Vineet Martin [facility] BOARD FILLER [facility] CHILD [facility] .840.114 350.1.13.10 4.2.7.2.686 [id number] 2020-08-10 08:00:00 2020-08-10 08:00:00 Outpatient R [facility] [id number] [facility] 2020-07-31 00:00:00 2020-07-31 00:00:00 Telephone Faculty, Vineet Martin [facility] BO[facility]ILLER [facility] CHILD [facility] .840.114 350.1.13.10 4.2.7.2.686 [id number] 2020-07-30 13:00:00 2020-07-30 13:00:00 Outpatient R CEFERINO MOON [facility] [id number] [facility] 2020-07-22 13:30:00 2020-07-22 13:30:00 Outpatient SHIRA KIRAN [facility] [id number] [facility] 2020-07-16 10:30:00 2020-07-16 10:30:00 Outpatient R [facility] [id number] [facility] 2020-07-13 09:00:00 2020-07-13 09:00:00 Outpatient R [facility] [id number] [facility] 2020-07-06 11:00:00 2020-07-06 11:00:00 Outpatient R [facility] [id number] [facility] 2020-07-06 08:30:00 2020-07-06 08:30:00 Outpatient LYUDMILA REYES [facility] [id number] [facility] 2020-07-02 11:00:00 2020-07-02 11:00:00 Outpatient LYUDMILA REYES [facility] [id number] [facility] 2020-06-30 10:00:00 2020-06-30 10:00:00 Outpatient LYUDMILA REYES [facility] [id number] [facility] 2020-06-22 08:30:29 2020-06-22 23:59:00 Outpatient LYUDMILA REYES [facility] [id number] [facility] 2020-06-22 00:00:00 2020-06-22 00:00:00 Outpatient LYUDMILA REYES [facility] [id number] [facility] 2020-06-15 10:30:00 2020-06-15 10:45:00 Ultrasound Specialist Visit Lab, [facility] Shira Guthrie [facility] 1.2.840.114 350.1.13.10 4.2.7.2.686 [id number] [facility] 2020-06-15 10:30:00 2020-06-15 10:30:00 Outpatient R SHIRA GUTHRIE [facility] [id number] [facility] 2020-06-11 10:15:00 2020-06-11 10:15:00 Outpatient R SHIRA GUTHRIE [facility] [id number] [facility] 2020-06-08 13:00:00 2020-06-08 13:00:00 Outpatient R [facility] [id number] [facility] 2020-06-01 14:30:00 2020-06-01 14:30:00 Outpatient R RE, MARIVEL GRIMALDO, MARIVEL [facility] [id number] [facility] 2020-05-25 08:30:00 2020-05-25 08:30:00 Outpatient P [facility] [id number] [facility] 2020-05-11 13:15:00 2020-05-11 13:15:00 Outpatient R [facility] [id number] [facility] 2020-05-11 00:00:00 2020-05-11 00:00:00 Patient Secure Msg Doctor Unassigned, Boaz [facility] ..[id number] [facility] 2020-04-16 08:30:00 2020-04-16 08:30:00 Outpatient R RACHNAPURVISHIRA [facility] [id number] [facility] 2020-02-12 00:00:00 2020-02-12 00:00:00 Patient Secure Msg Doctor Unassigned, Boaz MELANIE RASCON 1..[id number] [id number] [facility] 2019-09-17 00:00:00 2019-09-17 00:00:00 Patient Secure Msg Doctor Unassigned, Boaz [facility] [id number] [facility] 2019-09-13 08:45:00 2019-09-13 08:45:00 Outpatient MARIANNE MARRUFO [facility] [id number] [facility]
[2023-09-27] MEDS ORDERED: NA CHLORIDE 0.9% 1,000 ML ONE (10:09)
[2023-09-27] MEDS ORDERED: CEFTRIAXONE 1000 MG/VIAL ONE (10:09)
[2023-09-27] MEDS ORDERED: PHENAZOPYRIDINE 100MG TAB PO ONE (10:09)
[2023-09-27 10:30] LABS: Absolute Eosinophils 0.1 K/uL (0-0.5); Absolute Lymphocytes (CBC) 2.6 K/uL (0.7-4.9); Absolute Neutrophil 14.5 K/uL (1.8-8.0); Basophils % 0.3 % (0-1.3); Eosinophils % 0.4 % (0-4.4); Hematocrit 42.9 % (36.0-45.0); Hemoglobin 14.4 g/dL (12.0-15.0); Lymphocytes % 14.2 % (15.3-44.8); MCHC 33.4 g/dL (32.0-36.0); MCV 98.6 fL (80-100); MPV 10.4 fL (7.6-11.3); Monocytes % 5.4 % (3.3-12.3); Neutrophils % 79.7 % (41.7-73.7); Platelets 167 thou/uL (152-406); RBC Red Blood Cell Count 4.35 M/uL (3.86-4.86)
[2023-09-27 10:33] LABS: Specific Gravity 1.021 (1.005-1.030)
[2023-09-27 10:41] LABS: Specific Gravity 1.021 (1.005-1.030); Transitional Epithelial <5 /HPF (None Seen); Urine Bacteria 20-50 /HPF (<20); Urine Bilirubin NEGATIVE (Negative); Urine Blood 3+ (Negative); Urine Clarity Extremely Turbid (Clear); Urine Color Yellow (Yellow); Urine Culture Reflex Order REFLEXED; Urine Glucose NEGATIVE (Negative); Urine Ketones NEGATIVE (Negative); Urine Microscopic Reflex YN ORDER UMIC; Urine Mucus 4+ /HPF (None Seen); Urine Nitrite NEGATIVE (Negative); Urine Protein 4+ (Over) (Negative); Urine RBC >50 /HPF (None Seen); Urine Urobilinogen 1+ (Normal); Urine WBC >50 /HPF (<5); Urine WBC Clump Occasional /HPF (None Seen); Urine pH 8.5 (5.0-7.0)
[2023-09-27 10:55] LABS: Albumin 4.3 g/dL (3.4-5.0); Albumin/Globulin Ratio 1.3 (1.1-1.8); Anion Gap 8.6 mEq/L (5.0-15.0); Bilirubin Total 0.4 mg/dL (0.2-1.0); Globulin 3.4 g/dL (2.3-3.5); Potassium 3.6 mEq/L (3.5-5.1); Protein, Total 7.7 g/dL (6.4-8.2)
[2023-09-27] MEDS ORDERED: CIPROFLOXACIN 400mg IV 400 MG/200 ML BAG IV ONE (11:24)
[2023-09-27] MEDS ORDERED: SMZ./TMP. 800/160 MG TABLET ONE (11:24)
--- NOTE | 2023-09-27 11:59 | EDPHYS ---
Physician Documentation [facility] Name: Rivka Johnson Age: 23 yrs Sex: Female : 2000 Arrival Date: 09/27/2023 Time: 09:46 Bed 5 Private MD: CODY Physician Zhang Ngo HPI: 09/26 11:12 This 23 yrs old Female presents to ER via Ambulatory with complaints of leatha dehydration, Pain With Urination. 11:12 The patient presents with urinary symptoms, frequency, hematuria, urgency. Onset: The elatha symptoms/episode began/occurred 3 day(s) ago. Modifying factors: The symptoms are alleviated by nothing, the symptoms are aggravated by nothing. Associated signs and symptoms: The patient has no apparent associated signs or symptoms. Severity of symptoms: At their worst the symptoms were mild, in the emergency department the symptoms are unchanged. The patient is sexually active, reportedly has a single partner. PRODUCTION COOK: 10:24 Living 2, LMP 08/2023, unknown kc6 11:12 2, Full Term 2, Premature 0, 0, Living 2, unknown leatha Historical: - Allergies: 10:24 [place] Concentrate; kc6 10:24 PENICILLINS; kc6 - PMHx: 10:24 Migraine; Seizures; kc6 - PSHx: 10:24 None; kc6 - Immunization history:: Adult Immunizations up to date. - Infectious Disease History:: Denies. - Social history:: Smoking status: unknown. - Family history:: not pertinent. ROS: 11:12 Constitutional: Negative for fever, chills, and weight loss, Eyes: Negative for injury, leatha pain, redness, and discharge, ENT: Negative for injury, pain, and discharge, Neck: Negative for injury, pain, and swelling, Cardiovascular: Negative for chest pain, palpitations, and edema, Respiratory: Negative for shortness of breath, cough, wheezing, and pleuritic chest pain, Back: Negative for injury and pain, : Negative for injury, bleeding, discharge, and swelling, MS/Extremity: Negative for injury and deformity, Skin: Negative for injury, rash, and discoloration, Neuro: Negative for headache, weakness, numbness, tingling, and seizure, Psych: Negative for depression, anxiety, suicide ideation, homicidal ideation, and hallucinations, Allergy/Immunology: Negative for hives, rash, and allergies, Endocrine: Negative for neck swelling, polydipsia, polyuria, polyphagia, and marked weight changes, Hematologic/Lymphatic: Negative for swollen nodes, abnormal bleeding, and unusual bruising, 11:12 Abdomen/GI: Positive for abdominal pain, 11:12 : Positive for urinary symptoms, urinary frequency, hematuria, burning with urination, difficulty urinating, foul smelling urine, Exam: 11:12 Constitutional: This is a well developed, well nourished patient who is awake, alert, leatha and in no acute distress. Head/Face: Normocephalic, atraumatic. Eyes: Pupils equal round and reactive to light, extra-ocular motions intact. Lids and lashes normal. Conjunctiva and sclera are non-icteric and not injected. Cornea within normal limits. Periorbital areas with no swelling, redness, or edema. ENT: Nares patent. No nasal discharge, no septal abnormalities noted. Tympanic membranes are normal and external auditory canals are clear. Oropharynx with no redness, swelling, or masses, exudates, or evidence of obstruction, uvula midline. Mucous membranes moist. Neck: Trachea midline, no thyromegaly or masses palpated, and no cervical lymphadenopathy. Supple, full range of motion without nuchal rigidity, or vertebral point tenderness. No Meningismus. Chest/axilla: Normal chest wall appearance and motion. Nontender with no deformity. No lesions are appreciated. Cardiovascular: Regular rate and rhythm with a normal S1 and S2. No gallops, murmurs, or rubs. Normal PMI, no JVD. No pulse deficits. Respiratory: Lungs have equal breath sounds bilaterally, clear to auscultation and percussion. No rales, rhonchi or wheezes noted. No increased work of breathing, no retractions or nasal flaring. Abdomen/GI: Soft, non-tender, with normal bowel sounds. No distension or tympany. No guarding or rebound. No evidence of tenderness throughout. Back: No spinal tenderness. No costovertebral tenderness. Full range of motion. Skin: Warm, dry with normal turgor. Normal color with no rashes, no lesions, and no evidence of cellulitis. MS/ Extremity: Pulses equal, no cyanosis. Neurovascular intact. Full, normal range of motion. Neuro: Awake and alert, GCS 15, oriented to person, place, time, and situation. Cranial nerves II-XII grossly intact. Motor strength 5/5 in all extremities. Sensory grossly intact. Cerebellar exam normal. Normal gait. Psych: Awake, alert, with orientation to person, place and time. Behavior, mood, and affect are within normal limits. 11:12 : CVA tenderness, is absent, Bladder: is normal, non-distended, non-tender, Sexual behavior: the patient is sexually active, and reports a single partner, Vital Signs: 10:23 BP 122 / 94; Pulse 79; Resp 16 S; Pulse Ox 98% on R/A; Weight 52.16 kg (R); Height 5 kc6 ft. 1 in. (R); 12:45 BP 118 / 72; Pulse 77; Resp 18; Pulse Ox 100% on R/A; ld1 10:23 Body Mass Index 21.73 (52.16 kg, 154.94 cm) kc6 MDM: 09:51 Patient medically screened. [facility] 11:17 Differential diagnosis: kidney stone, uterine fibroids, urinary tract infection. Data leatha reviewed: vital signs, nurses notes, lab test result(s), radiologic studies, CT scan. Consideration of Admission/Observation Escalation of care including admission/observation considered. I considered the following discharge prescriptions or medication management in the emergency department Medications were administered in the Emergency Department. See MAR. Independent interpretation of the following test(s) in the Emergency Department CT Scan: My interpretation is ct ab/pelvis. Test considered but Not performed: Ultrasound no abd usg. Historians other than the Patient: pt well informed. Care significantly affected by the following chronic conditions: migraines , seizures. 09/26 09:53 Order name: CBC with Diff; Complete Time: 11: [facility] 09/26 09:53 Order name: Comprehensive Metabolic Panel; Complete Time: 11: [facility] 09/26 09:53 Order name: Urinalysis w/ reflexes; Complete Time: : [facility] 09/26 09:53 Order name: PREGU; Complete Time: : [facility] 09/26 10:45 Order name: Urine Culture EDMS Administered Medications: 10:23 Drug: NS 0.9% IV 1000 ml IV at 1 bolus Per protocol; 1000 mL bolus Route: IV; Rate: 1 kc6 bolus; Site: right antecubital; 11:33 Follow up: Response: No adverse reaction; IV Status: Completed infusion; IV Intake: kc6 1000ml 12:41 Follow up: Response: No adverse reaction; IV Status: Completed infusion ld1 10:23 Drug: Rocephin IV 1 grams IV at per protocol once; Given slow IV push per pharmacy kc6 instructions Route: IV; Rate: per protocol; Site: right antecubital; 11:33 Follow up: Response: No adverse reaction; IV Status: Completed infusion; IV Intake: [id number] 10:23 Drug: Phenazopyridine PO 200 mg PO once Route: PO; kc6 10:58 Follow up: Response: No adverse reaction kc6 12:41 Follow up: Response: No adverse reaction ld1 11:33 Drug: Ciprofloxacin IVPB 400 mg 200 ml IVPB once over 60 mins Volume: 200 ml; Route: kc6 IVPB; Infused Over: 60 mins; Site: right antecubital; 12:41 Follow up: Response: No adverse reaction; IV Status: Completed infusion ld1 11:33 Drug: Trimethoprim-Sulfamethoxazole PO (160 mg-800 mg (DS) 1 tablet PO once Route: PO; kc6 12:41 Follow up: Response: No adverse reaction ld1 Disposition Summary: 09/27/23 11:58 Discharge Ordered Notes: Location: Home leatha Problem: new leatha Symptoms: have improved leatha Condition: Stable leatha Diagnosis - UTI/ Urinary tract infection, site not specified leatha - Dysuria leatha - Elevated white blood cell count leatha Followup: leatha - With: Private Physician - When: 2 - 3 days - Reason: Recheck today's complaints, Continuance of care, Re-evaluation by your physician Discharge Instructions: - Discharge Summary Sheet leatha - Dysuria leatha - Urinary Tract Infection, Adult leatha - Urinary Tract Infection, Adult, [id number] [facility] Forms: - Medication Reconciliation Form [facility] - Antibiotic Education leatha - Prescription Opioid Use leatha - Patient Portal Instructions [facility] - Leadership Thank You Letter [facility] Prescriptions: - Pyridium 200 mg Oral Tablet - take 1 tablet ORAL route every 8 hours for 3 days; 9 tablet; Refills: 0, [facility] Product Selection Permitted - Cipro 500 mg Oral Tablet - take 1 tablet ORAL route every 12 hours for 7 days; 14 tablet; Refills: 0, [facility] Product Selection Permitted - Bactrim DS 800-160 mg Oral tablet - take 1 tablet ORAL route every 12 hours for 5 days; 10 tablet; Refills: 0, leatha Product Selection Permitted Signatures: Dispatcher [employer] EDZhang Arce MD MD cha Campbell, Kaitlyn RN RN kc6 Amena Ruiz RN ld1 Corrections: (The following items were deleted from the chart) 11:23 11:10 Abdomen Pelvis W [id number] ordered. EDMS EDMS
--- NOTE | 2023-09-27 11:59 | ER ---
Nurse's Notes [facility] Name: Rivka Johnson Age: 23 yrs Sex: Female : 2000 Arrival Date: 09/27/2023 Time: 09:46 Bed 5 Private MD: Diagnosis: UTI/ Urinary tract infection, site not specified;Dysuria;Elevated white blood cell count Presentation: 09/26 10:23 Chief complaint: Patient states: burning with urination x2 days. states she feels like kc6 she can't get hydrated. denies any other symptoms. Coronavirus screen: At this time, the client does not indicate any symptoms associated with coronavirus-19. Ebola Screen: No symptoms or risks identified at this time. Initial Sepsis Screen: Does the patient meet any 2 criteria? No. Patient's initial sepsis screen is negative. Does the patient have a suspected source of infection? No. Patient's initial sepsis screen is negative. Risk Assessment: Do you want to hurt yourself or someone else? Patient reports no desire to harm self or others. Onset of symptoms was September 25, 2023. 10:23 Method Of Arrival: Ambulatory [facility] 10:23 Acuity: LEENA 4 kc6 Triage Assessment: 10:24 General: Appears in no apparent distress. comfortable, well groomed, well developed, kc6 Behavior is calm, cooperative, appropriate for age. EENT: No signs and/or symptoms were reported regarding the EENT system. Neuro: Level of Consciousness is awake, alert, obeys commands, Oriented to person, place, time, situation, Appropriate for age. Cardiovascular: Capillary refill < 3 seconds. Respiratory: Airway is patent Trachea midline Respiratory effort is even, unlabored, Respiratory pattern is regular, symmetrical. GI: No signs and/or symptoms were reported involving the gastrointestinal system. : Reports burning with urination, since x2 days. Derm: No signs and/or symptoms reported regarding the dermatologic system. Skin is intact, is healthy with good turgor, Skin is pink, warm \T\ dry. Musculoskeletal: No signs and/or symptoms reported regarding the musculoskeletal system. Circulation, motion, and sensation intact. Capillary refill < 3 seconds, Range of motion: intact in all extremities. CONVEYOR FEEDER: 10:24 Living 2, LMP 08/2023, unknown [facility] 11:12 2, Full Term 2, Premature 0, 0, Living 2, unknown [facility] Historical: - Allergies: 10:24 [place] Concentrate; kc6 10:24 PENICILLINS; kc6 - PMHx: 10:24 Migraine; Seizures; kc6 - PSHx: 10:24 None; kc6 - Immunization history:: Adult Immunizations up to date. - Infectious Disease History:: Denies. - Social history:: Smoking status: unknown. - Family history:: not pertinent. Screenin:25 [facility] ED Fall Risk Assessment (Adult) History of falling in the last 3 months, kc6 including since admission No falls in past 3 months (0 pts) Confusion or Disorientation No (0 pts) Intoxicated or Sedated No (0 pts) Impaired Gait No (0 pts) Mobility Assist Device Used No (0 pt) Altered Elimination No (0 pt) Score/Fall Risk Level 0 - 2 = Low Risk. Abuse screen: Denies threats or abuse. Denies injuries from another. Nutritional screening: No deficits noted. Tuberculosis screening: No symptoms or risk factors identified. Assessment: 10:26 Reassessment: please see triage. kc6 11:19 Reassessment: pt refuses CT scan at this time. Dr. Ngo notified. 6 11:34 Reassessment: Patient appears in no apparent distress at this time. No changes from [facility] previously documented assessment. Patient and/or family updated on plan of care and expected duration. Pain level reassessed. Patient is alert, oriented x 3, equal unlabored respirations, skin warm/dry/pink. Vital Signs: 10:23 BP 122 / 94; Pulse 79; Resp 16 S; Pulse Ox 98% on R/A; Weight 52.16 kg (R); Height 5 kc6 ft. 1 in. (R); 12:45 BP 118 / 72; Pulse 77; Resp 18; Pulse Ox 100% on R/A; ld1 10:23 Body Mass Index 21.73 (52.16 kg, 154.94 cm) [facility] ED Course: 09:49 Patient arrived in ED. im 09:51 Zhang Ngo MD is Attending Physician. leatha 10:03 Amena Ruiz, RN is Primary Nurse. ld1 10:03 Ninfa Dao, TOYA is Primary Nurse. kc6 10:24 Triage completed. kc6 10:24 Arm band placed on. kc6 10:25 Patient has correct armband on for positive identification. Bed in low position. Call kc6 light in reach. Side rails up X 1. Pulse ox on. NIBP on. Pillow given. 10:25 Inserted saline lock: 20 gauge in right antecubital area, using aseptic technique. kc6 Blood collected. Flushed with 10 mL NS. 11:22 Note: pt refusing ct for now, notified Dr. Ngo. 12:46 No provider procedures requiring assistance completed. IV discontinued, intact, ld1 bleeding controlled, No redness/swelling at site. Pressure dressing applied. Administered Medications: 10:23 Drug: NS 0.9% IV 1000 ml IV at 1 bolus Per protocol; 1000 mL bolus Route: IV; Rate: 1 kc6 bolus; Site: right antecubital; 11:33 Follow up: Response: No adverse reaction; IV Status: Completed infusion; IV Intake: kc6 1000ml 12:41 Follow up: Response: No adverse reaction; IV Status: Completed infusion ld1 10:23 Drug: Rocephin IV 1 grams IV at per protocol once; Given slow IV push per pharmacy kc6 instructions Route: IV; Rate: per protocol; Site: right antecubital; 11:33 Follow up: Response: No adverse reaction; IV Status: Completed infusion; IV Intake: [id number] 10:23 Drug: Phenazopyridine PO 200 mg PO once Route: PO; kc6 10:58 Follow up: Response: No adverse reaction kc6 12:41 Follow up: Response: No adverse reaction ld1 11:33 Drug: Ciprofloxacin IVPB 400 mg 200 ml IVPB once over 60 mins Volume: 200 ml; Route: kc6 IVPB; Infused Over: 60 mins; Site: right antecubital; 12:41 Follow up: Response: No adverse reaction; IV Status: Completed infusion ld1 11:33 Drug: Trimethoprim-Sulfamethoxazole PO (160 mg-800 mg (DS) 1 tablet PO once Route: PO; kc6 12:41 Follow up: Response: No adverse reaction ld1 Medication: 12:47 VIS not applicable for this client. ld1 Intake: 11:33 IV: 1000ml; Total: 1000ml. kc6 11:33 IV: 50ml; Total: 1050ml. kc6 Outcome: 11:58 Discharge ordered by MD. zhang 12:46 Discharged to home ambulatory, ld1 12:46 Condition: good 12:46 Discharge instructions given to patient, Instructed on discharge instructions, follow up and referral plans. medication usage, Demonstrated understanding of instructions, follow-up care, medications, Prescriptions given X 3, 12:47 Patient left the ED. ld1 Signatures: Zhang Ngo MD MD cha Jones, Susan sj Sims, Lauren, RN RN ld1 Ninfa Dao RN RN kc6 Patricia Arcos Corrections: (The following items were deleted from the chart) 10:59 10:23 Chief complaint: Patient states: burning with urination x2 days. states she feels kc6 like she can't get hydrated. kc6
[2023-09-27 14:08] VITALS: BP 118/72; O2SAT 100
== END 2023-09-27 12:47 | disposition home or self-care (01) ==
LOC: ER 09:46
DX: N39.0 Urinary tract infection, site not specified (principal); D72.829 Elevated white blood cell count, unspecified
CPT/HCPCS: 36415; 80053; 81001; 81025; 85025; 87086; 87088; J0696; J0744; J7030